=== PATIENT | female | born 1985 | race Caucasian/White ===

== ENCOUNTER 2019-09-18 05:26 | Emergency (ER) | payer OTHER, SELFPAY ==
[2019-09-18 05:30] VITALS: BP 137/81; PULSE 84; RESP 20; TEMP 37.1; O2SAT 97
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
== END 2019-09-18 05:50 | disposition left against medical advice (07) ==
PROVIDERS: Emergency Provider Family Medicine
DX: S71.111A Laceration without foreign body, right thigh, initial encounter (principal); W26.0XXA Contact with knife, initial encounter
CPT/HCPCS: 99281; 99282

== ENCOUNTER 2021-08-17 12:28 | Emergency (ER) | payer OTHER, SELFPAY ==
[2021-08-17 12:38] VITALS: BP 123/68; PULSE 84; RESP 16; TEMP 36.6; O2SAT 100
--- NOTE | 2021-08-17 14:07 | PC.NURSE ---
pt ambulatory to intake desk and states she is going to another facility. pt ambulatory out of waiting area.
== END 2021-08-17 14:21 | disposition left against medical advice (07) ==
LOC: ANHED 14:18
DX: R20.0 Anesthesia of skin (principal)
CPT/HCPCS: 99199

== ENCOUNTER 2021-12-25 06:29 | Inpatient (IN) | payer OTHER, SELFPAY ==
[2021-12-25] VITALS (104 sets, daily range): BP systolic 74–127; BP diastolic 36–72; PULSE 39–104; RESP 12–20; TEMP 36.2–36.7; O2SAT 81–100; BMI 34.9
--- NOTE | 2021-12-25 06:30 | LDADM ---
This patient, Olena Boone, was admitted to Labor/Delivery/Recovery 107 on 12/25/21 at 06:29. Plans for labor, pain management and were discussed with patient. Patient/family oriented to hospital policies and general routines including ID bracelet, bed and alarms, visiting hours, pain management, procedures, bathroom and other care routines, personal items, smoking policy, room service/diet and guest tray routines, infant security routines, and visiting hours. Patient/Family are encouraged to report perceived risks to care and to ask questions if they do not understand what they are told or what they should do. See OBIX for further documentation.
--- OUTSIDE RECORDS SUMMARY | 2021-12-25 06:40 | XMS_ITS | Encounter Summary ---
:1985 Author Reason for Visit NST [id number] EDC 01/15/2022 LMP1 Assessment and Plan 1. Cholestasis of ? non-stress test Discussion Note: None recorded.Patient educational handouts: No information available. Plan of Care Reminders Provider Appointments Nst 12/28/2021 10:00AM Nst, , EQUI P ? Nst 12/31/2021 10:00AM Nst, , EQUI P ? Ob Routine 12/31/2021 10:30AM Massiel E Kathi ngle, CNM ? Nst 01/04/2022 10:00AM Nst, , EQUI P ? Ob Routine 01/07/2022 10:30AM Massiel E Kathi ngle, CNM ? Nst 01/07/2022 10:00AM Nst, , EQUI P ? Nst 01/11/2022 10:00AM Nst, , EQUI P ? Ob Routine 01/14/2022 10:30AM Massiel E Kathi ngle, CNM ? Nst 01/14/2022 10:00AM Nst, , EQUI P ? Nst 01/18/2022 10:00AM Nst, , EQUI P Lab None recorded. ? ? Referral None recorded. ? ? Procedures None recorded. ? ? Surgeries None recorded. ? ? Imaging Non-stress Test 12/07/2021 [place] Medications Name Start Date ? ? levothyroxine 125 mcg tablet ? Take 1 tablet twice a day by oral route. metoclopramide 10 mg tablet ? Take 1 tablet every 6 hours by oral route as needed. olanzapine 10 mg tablet ? TAKE 1 TABLET BY MOUTH NIGHTLY AT BEDTIME ALONG WITH 20MG DOSE prednisone 2.5 mg tablet ? Take 1 tablet every day by oral route. sertraline 100 mg tablet ? ursodiol 300 mg capsule ? Take 1 capsule twice a day by oral route. ursodiol 500 mg tablet ? TAKE 1 TABLET TWICE A DAY BY ORAL ROUTE verapamil ER (SR) 180 mg tablet,extended release ? Take 0.5 tablet(s) every day by oral route. Medications Administered None recorded. Vitals
--- OUTSIDE RECORDS SUMMARY | 2021-12-25 06:40 | XMS_ITS ---
:1985 Author Care Team Providers Name Role Phone Massiel Junior Primary Care Provider Unavailable Allergies Code Code System Name Reaction Severity Status Onset 08588 RxNorm Ketorolac ? ? Active ? Penicillins Hives ? Active ? Notes: KETOROLAC TROMETHAMINE (Active) Comment: Location: [facility] Causative Agent: Toradol; Medications Name Status Start Date Stop Date ? ? Anusol-HC 2.5 % topical cream with perineal applicator Completed 06/27/2018 10/04/2018 apply by topical route 2- 4 times every day a thin layer to the affected area(s) azithromycin 250 mg tablet Completed 06/27/201807/01 take 2 tablet by oral route every day f or 1 day then 1 tablet (250 mg) by oral route once daily for 4 days ceftriaxone 250 mg solution for injection Completed 201710/04/2018 inject (250MG) by intramuscular route once Compazine 5 mg tablet Completed 06/19/2018 10/04/2018 take 1 tablet by oral route every 6 hours as needed for nausea and vomiting Depo-Provera 150 mg/mL intramuscular suspension Completed 10/04/2018 06/16/2021 inject 1 milliliter by intramuscular route every 3 months Flagyl 500 mg tablet Completed 04/09/2018 09/05/2018 take 1 tablet by oral route every 12 hours hydroxyzine HCl 25 mg tablet Completed ? TAKE 1 TABLET BY MOUTH TWO TIMES A DAY NEEDED hydroxyzine HCl 50 mg tablet Completed ? TAKE 1 TABLET BY MOUTH TWO TIMES A DAY NEEDED hydroxyzine pamoate 25 mg capsule Completed ? 08/04/2021 TAKE 1 CAPSULE BY MOUTH TWO TIMES A DAY NEEDED hydroxyzine pamoate 50 mg capsule Completed ? 08/04/2021 TAKE 1 CAPSULE BY MOUTH TWO TIMES A DAY NEEDED
--- OUTSIDE RECORDS SUMMARY | 2021-12-25 06:40 | XMS_ITS | Encounter Summary ---
:1985 Author Reason for Visit OB visit OB [id number] EDC 01/15/2022 LMP 03/10/2021 Assessment and Plan Assessment Note Patient is __34_weeks . Discuss ed plan. 1. Cholestasis of ? bile acids, total, serum ? CBC w/ auto diff ? TSH, serum or plasma 2. Routine care Discussion Note: None recorded.Patient educational handouts: No information available. Plan of Care Reminders Provider Appointments Nst 12/28/2021 Nst, , EQUIP 10:00AM ? Nst 12/31/2021 Nst, , EQUIP 10:00AM ? Ob Routine 12/31/2021 Massiel Junior , CNM 10:30AM ? Nst 01/04/2022 Nst, , EQUIP 10:00AM ? Ob Routine 01/07/2022 Massiel Junior , CNM 10:30AM ? Nst 01/07/2022 Nst, , EQUIP 10:00AM ? Nst 01/11/2022 Nst, , EQUIP 10:00AM ? Ob Routine 01/14/2022 Massiel Junior , CNM 10:30AM ? Nst 01/14/2022 Nst, , EQUIP 10:00AM ? Nst 01/18/2022 Nst, , EQUIP 10:00AM Lab Bile Acids, Total, Serum 12/10/2021 [facility] (Lab) ? CBC W/ Auto Diff 12/10/2021 [facility] (Lab) ? TSH, Serum or Plasma 12/10/2021 [facility] (Lab)
--- OUTSIDE RECORDS SUMMARY | 2021-12-25 06:40 | XMS_ITS | Encounter Summary ---
:1985 Author Reason for Visit None recorded. Assessment and Plan 1. Cholestasis of ? [...] None recorded. ? ? Imaging Non-stress Test 12/24/2021 [place] Medications Name Start Date ? ? levothyroxine [...] oral route. Medications Administered None recorded. Vitals None recorded. Re
--- OUTSIDE RECORDS SUMMARY | 2021-12-25 06:40 | XMS_ITS | Encounter Summary ---
[...] None recorded. ? ? Imaging Non-stress Test 12/21/2021 [place] Medications Name Start Date ? ? levothyroxine [...]
--- OUTSIDE RECORDS SUMMARY | 2021-12-25 06:40 | XMS_ITS | Encounter Summary ---
:1985 Author Reason for Visit None recorded. Assessment and Plan 1. Cholestasis of ? US, obstetric, follow-up Discussion Note: None recorded.Patient educational handouts: No [...] ? Surgeries None recorded. ? ? Imaging US, Obstetric, Follow-up 12/24/2021 [facility] Medications Name Start Date ? ? levothyroxine 125 mcg tablet ? Take 1 tablet twice a day by oral route. metoclopramide 10 mg tablet ? Take 1 tablet every 6 hours by oral route as needed. olanzapine 10 mg tablet ? TAKE 1 TABLET BY MOUTH NIGHTLY AT BEDTIME ALONG WITH 20MG DO
--- OUTSIDE RECORDS SUMMARY | 2021-12-25 06:40 | XMS_ITS | Encounter Summary ---
[...] None recorded. ? ? Imaging Non-stress Test 12/10/2021 [place] Medications Name Start Date ? ? levothyroxine [...] Medications Administered None recorded. Vitals None recorded. Res
--- OUTSIDE RECORDS SUMMARY | 2021-12-25 06:40 | XMS_ITS | Encounter Summary ---
:1985 Author Reason for Visit nst [id number] EDC 01/15/2022 Assessment and Plan 1. Gestational diabetes mellitus ? non-stress test Discussion Note: None recorded.Patient [...] None recorded. ? ? Imaging Non-stress Test 12/14/2021 [place] Medications Name Start Date ? ? levothyroxine [...]
--- OUTSIDE RECORDS SUMMARY | 2021-12-25 06:40 | XMS_ITS | Encounter Summary ---
:1985 Author Reason for Visit OB visit OB [id number] EDC 01/15/2022 LMP 03/10/2021 Assessment and Plan Assessment Note Patient is __33_weeks . Discuss ed plan. 1. Routine care Discussion Note: None recorded.Patient educational [...] ? Surgeries None recorded. ? ? Imaging None recorded. ? ? Medications Name Start Date ? ? levothyroxine [...] ROUTE verapamil ER (SR) 180 mg tablet,extended relea
--- OUTSIDE RECORDS SUMMARY | 2021-12-25 06:40 | XMS_ITS | Encounter Summary ---
[...] None recorded. ? ? Imaging Non-stress Test 12/03/2021 [place] Medications Name Start Date ? ? levothyroxine [...]
--- OUTSIDE RECORDS SUMMARY | 2021-12-25 06:40 | XMS_ITS | Encounter Summary ---
:1985 Author Reason for Visit None recorded. Assessment and Plan 1. condition affecting obstetrica l care of mother ? US, obstetric, biophysical profile Discussion Note: None recorded.Patient educational handouts: No information available. Plan of Care Reminders Provider Appointments Nst 12/28/2021 Nst, , EQUIP 10:00AM ? Nst 12/31/2021 Nst, , EQUIP 10:00AM ? Ob Routine 12/31/2021 Massiel Lotte , CNM 10:30AM ? Nst 01/04/2022 Nst, , EQUIP 10:00AM ? Ob Routine 01/07/2022 Massiel Star JacksonVernon , CNM 10:30AM ? Nst 01/07/2022 Nst, , EQUIP 10:00AM ? Nst 01/11/2022 Nst, , EQUIP 10:00AM ? Ob Routine 01/14/2022 Massiel Star JacksonVernon , CNM 10:30AM ? Nst 01/14/2022 Nst, , EQUIP 10:00AM ? Nst 01/18/2022 Nst, , EQUIP 10:00AM Lab None recorded. ? ? Referral None recorded. ? ? Procedures None recorded. ? ? Surgeries None recorded. ? ? Imaging US, Obstetric, Biophysical 12/10/2021 [place] Medications Name Start Date ? ? levothyroxine 125 mcg tablet ? Take 1 tablet twice a day by oral route. metoclopramide 10 mg tablet ? Take 1 tablet every 6 hours by oral route as needed. olanzapine 10 mg tablet ? TAKE 1 TABLET BY
--- OUTSIDE RECORDS SUMMARY | 2021-12-25 06:40 | XMS_ITS | Encounter Summary ---
:1985 Author Reason for Visit OB visit OB [id number] EDC 01/15/2022 LMP 03/10/2021 Assessment and Plan Assessment Note Patient is __36_weeks . Discuss ed plan. 1. Routine care [...] ROUTE verapamil ER (SR) 180 mg tablet,extended rele
--- OUTSIDE RECORDS SUMMARY | 2021-12-25 06:41 | XMS_ITS | Encounter Summary ---
[...] None recorded. ? ? Imaging Non-stress Test 11/30/2021 [place] Medications Name Start Date ? ? levothyroxine [...]
--- OUTSIDE RECORDS SUMMARY | 2021-12-25 06:41 | XMS_ITS | Encounter Summary ---
[...] None recorded. ? ? Imaging Non-stress Test 11/19/2021 [place] Medications Name Start Date ? ? levothyroxine [...]
--- OUTSIDE RECORDS SUMMARY | 2021-12-25 06:41 | XMS_ITS | Encounter Summary ---
:1985 Author Reason for Visit OB problem pt here c/o fatigue and all over itching Assessment and Plan 1. Cholestasis of ? prednisone 2.5 mg tablet Discussion Note: None recorded.Patient educational handouts: No [...] 0.5 tablet(s) every day by oral route. Me
--- OUTSIDE RECORDS SUMMARY | 2021-12-25 06:41 | XMS_ITS | Encounter Summary ---
:1985 Author Reason for Visit None recorded. Assessment and Plan 1. History of premature delivery ? US, obstetric, follow-up Discussion Note: None [...] recorded. ? ? Imaging US, Obstetric, Follow-up 09/28/2021 [facility] Medications Name Start Date ? ? levothyroxine 125 mcg tablet ? Take 1 tablet twice a day by oral route. metoclopramide 10 mg tablet ? Take 1 tablet every 6 hours by oral route as needed. olanzapine 10 mg tablet ? TAKE 1 TABLET BY MOUTH NIGHTLY AT BEDTIME ALONG WITH 20M
--- OUTSIDE RECORDS SUMMARY | 2021-12-25 06:41 | XMS_ITS | Encounter Summary ---
[...] None recorded. ? ? Imaging Non-stress Test 11/17/2021 [place] Medications Name Start Date ? ? levothyroxine [...]
--- OUTSIDE RECORDS SUMMARY | 2021-12-25 06:41 | XMS_ITS | Encounter Summary ---
[...] None recorded. ? ? Imaging Non-stress Test 11/12/2021 [place] Medications Name Start Date ? ? levothyroxine [...]
--- OUTSIDE RECORDS SUMMARY | 2021-12-25 06:41 | XMS_ITS | Encounter Summary ---
[...] None recorded. ? ? Imaging Non-stress Test 11/26/2021 [place] Medications Name Start Date ? ? levothyroxine [...]
--- OUTSIDE RECORDS SUMMARY | 2021-12-25 06:41 | XMS_ITS | Encounter Summary ---
:1985 Author Reason for Visit OB visit OB [id number] EDC 01/15/2022 LMP 03/10/2021 Assessment and Plan Assessment Note Patient is __32_weeks . Discuss ed plan. 1. Cholestasis of ? bile acids, total, serum ? TSH, serum or plasma ? T4, free, serum 2. Hypothyroidism 3. Routine care Discussion Note: None recorded.Patient educational [...] EQUIP 10:00AM Lab Bile Acids, Total, Serum 11/26/2021 [facility] (Lab) ? TSH, Serum or Plasma 11/26/2021 [facility] (Lab) ? T4, Free, Serum 11/26/2021 [facility]
--- OUTSIDE RECORDS SUMMARY | 2021-12-25 06:41 | XMS_ITS | Encounter Summary ---
:1985 Author Reason for Visit OB visit ob [id number] EDC 01/15/2022 LMP 03/10/2021 Assessment and Plan 1. Routine care ? TSH, serum or plasma 2. Itching of skin ? bile acids, total, serum ? CMP, serum or plasma Discussion Note: None recorded.Patient educational handouts: No [...] Nst 01/18/2022 Nst, , EQUIP 10:00AM Lab TSH, Serum or Plasma 10/04/2021 [facility] (Lab) ? Bile Acids, Total, Serum 10/04/2021 [facility] (Lab) ? CMP, Serum or Plasma 10/04/2021 [facility] (Lab) Referral None recorded. ? ? Procedures None recorded. ? ? Surgeries
--- OUTSIDE RECORDS SUMMARY | 2021-12-25 06:41 | XMS_ITS | Encounter Summary ---
:1985 Author Reason for Visit OB visit OB [id number] EDC 01/15/2022 LMP 03/10/2021 Assessment and Plan Assessment Note Patient is __31_weeks . Discuss ed plan. 1. Routine care [...]
--- OUTSIDE RECORDS SUMMARY | 2021-12-25 06:41 | XMS_ITS | Encounter Summary ---
:1985 Author Reason for Visit OB visit OB [id number] EDC 01/15/2022 LMP 03/10/2021 Assessment and Plan Assessment Note Patient is 29___weeks . Discuss ed plan. 1. Routine care [...]
--- OUTSIDE RECORDS SUMMARY | 2021-12-25 06:41 | XMS_ITS | Encounter Summary ---
[...] None recorded. ? ? Imaging Non-stress Test 11/10/2021 [place] Medications Name Start Date ? ? levothyroxine [...]
--- OUTSIDE RECORDS SUMMARY | 2021-12-25 06:41 | XMS_ITS | Encounter Summary ---
[...] recorded. ? ? Imaging US, Obstetric, Follow-up 11/26/2021 [facility] Medications Name Start Date ? ? levothyroxine 125 mcg tablet ? Take 1 tablet twice a day by oral route. metoclopramide 10 mg tablet ? Take 1 tablet every 6 hours by oral route as needed. olanzapine 10 mg tablet ? TAKE 1 TABLET BY MOUTH NIGHTLY AT BEDTIME ALONG WITH 20MG DOS
[2021-12-25 07:21] LABS: Basophils Percent Auto 0.3 % (0.2-1.2); Eosinophils Absolute Auto 0.2 K/mm3 (0-0.3); Eosinophils Percent Auto 2.4 % (0-4.4); Hematocrit 31.7 % (37.0-47.0); Hemoglobin 10.4 g/dL (12.0-15.0); Immature Granulocyte Absolute 0.11 K/mm3 (0.00-0.031); Immature Granulocyte Percent A 1.1 % (0-0.5); Lymphocytes Percent Auto 18.2 % (18.3-44.2); Mean Corpuscular HGB Conc 32.8 g/dl (32-36); Mean Corpuscular Hemoglobin 31.3 pg (26-34); Mean Corpuscular Volume 95.5 fl (80-100); Mean Platelet Volume 11.3 fl (7.4-10.4); Monocytes Absolute Auto 0.6 K/mm3 (0.1-0.6); Monocytes Percent Auto 6.4 % (2.6-8.5); Neutrophils Absolute Auto 7.1 K/mm3 (1.3-6.7); Neutrophils Percent Auto 71.6 % (45.5-73.1); Platelet Count Result 228 k/mm3 (150-375); Red Blood Count 3.32 M/mm3 (4.2-5.4); Red Cell Distribution Width 14.5 % (11.5-14.5); White Blood Count 9.9 K/mm3 (4.5-10.0)
[2021-12-25] MEDS: LACTATED RINGERS 1,000 ML 125 ML IV CONT ×2 (07:33→17:24)
[2021-12-25] MEDS: ceFAZolin 2 GM/D5W 50 ML 2 GM/50 ML BAG IVPB (07:33)
[2021-12-25] MEDS: OXYTOCIN 30 UNITS/NS 500 ML 30 UNITS/500 ML BAG IV CONT (07:37)
[2021-12-25 07:40] LABS: Amphetamine Screen Urine Negative (Negative); Barbiturate Screen Urine Negative (Negative); Benzodiazepines Screen Urine Negative (Negative); Cannabinoid Screen Urine Positive (Negative); Cocaine Screen Urine Negative (Negative); Methadone Screen Urine Negative (Negative); Opiate Screen Urine Negative (Negative); Phencyclidine Screen Urine Negative (Negative)
--- NOTE | 2021-12-25 08:37 | WPDOBADMIT ---
Obstetrics - Admit Note Admission Note: record reviewed. No pertinent additions to the history and/or any subsequent changes in the physical findings that are not consistent with the expected course of the were found. IOL, cholestasis, hypothyroidism, GBS positive, SVE 1.5/60/-2 AROM minimal amount of clear odorless fluid Additions to the history and/or subsequent changes in the physical findings follow. None.
[2021-12-25] MEDS: ACETAMINOPHEN 500 MG TABLET 1000 MG PO (09:05)
[2021-12-25] MEDS: ONDANSETRON INJ 4 MG/2 ML VIAL IV PUSH (12:36)
[2021-12-25] MEDS: fentaNYL CITRATE INJ (*CRX) 100 MCG/2 ML VIAL 50 MCG IV PUSH ×2 (12:37→13:10)
--- NOTE | 2021-12-25 20:08 | PM.IMHP ---
H&P: HPI History of Present Illness Date/Time: 12/25/21 20:08 Chief Complaint: Pt is a with hx of demise in 2003 and ectopic in 2006. pt was admitted today for induction for cholestasis at 37 weeks gestation. pt has a history of thyroid cancer, methamphetamine use. pt is in recovery and has tested negative during this . pt is tanvir regularly. RN unable to place FSE and CNM at be, US done and fetus in breech position. Fetus was confirmed vertex 12/25/21 with us in the office. GBS positive Review of Systems Review of Systems: All systems reviewed & are unremarkable except as noted in HPI and below PMFSH Past Medical History Medical History (Updated 12/25/21 @ 20:14 by Massiel Junior CNM) Anxiety Depression Surgical History Surgical History (Updated 09/18/19 @ 06:23 by Jason DejesusMD) H/O thyroidectomy H/O tubal ligation S/P tonsillectomy Family History Family History (Updated 12/25/21 @ 07:22 by Celine Barber RN) Other Unknown family medical history Social History Social History (Updated 09/18/19 @ 06:24 by Jason Dejesus, ) Smoking packs per day: 0.5 Smoking cigarettes per day: 10.0 Years smoked: 20 Smoking pack-years: 10.00 Smoking status: Current every day smoker Tobacco type: cigarettes Substance use: current Substance use type: marijuana Spiritual care concerns: No Meds Home Medications and Allergies Home Medications Medication Instructions Recorded Confirmed Type levothyroxine 125 mcg tablet 225 mcg PO DAILY 09/18/19 12/25/21 History vit no.95-ferrous 1 tablet PO DAILY 09/18/19 12/25/21 History fumarate 28 mg-folic acid 800 mcg tablet () prednisone 2.5 mg tablet 2.5 mg PO DAILY 12/25/21 12/25/21 History ursodiol 500 mg tablet 500 mg PO BID 12/25/21 12/25/21 History Allergies Allergy/AdvReac Type Severity Reaction Status Date / Time Penicillins Allergy Severe HIVES Verified 04/23/15 21:40 ketorolac Allergy Intermediate HIVES Verified 04/23/15 21:40 vancomycin Allergy Mild Itching Verified 09/05/18 14:24 Vital Signs Vital Signs - 24 hr 12/25/21 06:54 12/25/21 06:55 12/25/21 07:46 Temperature 36.6 C Pulse Rate 81 57 L Respiratory Rate 20 Blood Pressure 94/51 L 103/64 Oxygen Delivery 12/25/21 08:01 12/25/21 08:16 12/25/21 08:31 Temperature Pulse Rate 55 L 59 L 79 Respiratory Rate Blood Pressure 107/52 L 105/60 107/65 Oxygen Delivery 12/25/21 08:35 12/25/21 08:46 12/25/21 09:01 Temperature 36.5 C Pulse Rate 57 L 69 Respiratory Rate 18 Blood Pressure 108/62 127/72 Oxygen Delivery 12/25/21 09:16 12/25/21 09:25 12/25/21 09:31 Temperature Pulse Rate 55 L 58 L 61 Respiratory Rate Blood Pressure 89/65 L 88/46 L 86/44 L Oxygen Delivery 12/25/21 10:01 12/25/21 10:30 12/25/21 10:31 Temperature 36.7 C Pulse Rate 57 L 53 L Respiratory Rate 18 Blood Pressure 90/46 L 112/67 Oxygen Delivery 12/25/21 11:01 12/25/21 11:14 12/25/21 11:31 Temperature Pulse Rate 54 L 54 L 48 L Respiratory Rate Blood Pressure 95/45 L 113/68 106/58 L Oxygen Delivery 12/25/21 12:01 12/25/21 12:10 12/25/21 12:34 Temperature 36.6 C Pulse Rate 57 L 56 L Respiratory Rate 18 Blood Pressure 124/57 L 108/50 L Oxygen Delivery 12/25/21 13:01 12/25/21 13:31 12/25/21 13:47 Temperature 36.6 C Pulse Rate 51 L 49 L Respiratory Rate 20 Blood Pressure 96/55 L 85/45 L Oxygen Delivery 12/25/21 14:02 12/25/21 14:09 12/25/21 14:31 Temperature Pulse Rate 49 L 46 L 49 L Respiratory Rate Blood Pressure 74/57 L 98/65 L 102/65 Oxygen Delivery 12/25/21 14:47 12/25/21 15:01 12/25/21 15:31 Temperature Pulse Rate 49 L 50 L 47 L Respiratory Rate Blood Pressure 105/54 L 96/52 L 109/51 L Oxygen Delivery 12/25/21 16:01 12/25/21 16:03 12/25/21 16:31 Temperature 36.6 C Pulse Rate 60 55 L
--- NOTE | 2021-12-25 20:14 | PM.IMHP ---
H&P: HPI History of Present Illness Date/Time: 12/25/21 20:14 Chief Complaint: pt comfortable and resting us done, breech presentation PMFSH Past Medical History Medical History (Updated 12/25/21 @ 20:15 by Massiel Junior CNM) Anxiety Depression Surgical History Surgical History (Updated 09/18/19 @ 06:23 by Jason Dejesus, ) H/O thyroidectomy H/O tubal ligation S/P tonsillectomy Family History Family History (Updated 12/25/21 @ 07:22 by Celine Barber RN) Other Unknown family medical history Social History Social History (Updated 09/18/19 @ 06:24 by Jason Dejesus, ) Smoking packs per day: 0.5 Smoking cigarettes per day: 10.0 Years smoked: 20 Smoking pack-years: 10.00 Smoking status: Current every day smoker Tobacco type: cigarettes Substance use: current Substance use type: marijuana Spiritual care concerns: No Meds Home Medications and Allergies Home Medications Medication Instructions Recorded Confirmed Type levothyroxine 125 mcg tablet 225 mcg PO DAILY 09/18/19 12/25/21 History vit no.95-ferrous 1 tablet PO DAILY 09/18/19 12/25/21 History fumarate 28 mg-folic acid 800 mcg tablet () prednisone 2.5 mg tablet 2.5 mg PO DAILY 12/25/21 12/25/21 History ursodiol 500 mg tablet 500 mg PO BID 12/25/21 12/25/21 History Allergies Allergy/AdvReac Type Severity Reaction Status Date / Time Penicillins Allergy Severe HIVES Verified 04/23/15 21:40 ketorolac Allergy Intermediate HIVES Verified 04/23/15 21:40 vancomycin Allergy Mild Itching Verified 09/05/18 14:24 Vital Signs Vital Signs - 24 hr 12/25/21 06:54 12/25/21 06:55 12/25/21 07:46 Temperature 36.6 C Pulse Rate 81 57 L Respiratory Rate 20 Blood Pressure 94/51 L 103/64 Oxygen Delivery 12/25/21 08:01 12/25/21 08:16 12/25/21 08:31 Temperature Pulse Rate 55 L 59 L 79 Respiratory Rate Blood Pressure 107/52 L 105/60 107/65 Oxygen Delivery 12/25/21 08:35 12/25/21 08:46 08/06/22 09:01 Temperature 36.5 C Pulse Rate 57 L 69 Respiratory Rate 18 Blood Pressure 108/62 127/72 Oxygen Delivery 12/25/21 09:16 12/25/21 09:25 12/25/21 09:31 Temperature Pulse Rate 55 L 58 L 61 Respiratory Rate Blood Pressure 89/65 L 88/46 L 86/44 L Oxygen Delivery 12/25/21 10:01 12/25/21 10:30 12/25/21 10:31 Temperature 36.7 C Pulse Rate 57 L 53 L Respiratory Rate 18 Blood Pressure 90/46 L 112/67 Oxygen Delivery 12/25/21 11:01 12/25/21 11:14 12/25/21 11:31 Temperature Pulse Rate 54 L 54 L 48 L Respiratory Rate Blood Pressure 95/45 L 113/68 106/58 L Oxygen Delivery 12/25/21 12:01 12/25/21 12:10 12/25/21 12:34 Temperature 36.6 C Pulse Rate 57 L 56 L Respiratory Rate 18 Blood Pressure 124/57 L 108/50 L Oxygen Delivery 12/25/21 13:01 12/25/21 13:31 12/25/21 13:47 Temperature 36.6 C Pulse Rate 51 L 49 L Respiratory Rate 20 Blood Pressure 96/55 L 85/45 L Oxygen Delivery 12/25/21 14:02 12/25/21 14:09 12/25/21 14:31 Temperature Pulse Rate 49 L 46 L 49 L Respiratory Rate Blood Pressure 74/57 L 98/65 L 102/65 Oxygen Delivery 12/25/21 14:47 12/25/21 15:01 12/25/21 15:31 Temperature Pulse Rate 49 L 50 L 47 L Respiratory Rate Blood Pressure 105/54 L 96/52 L 109/51 L Oxygen Delivery 12/25/21 16:01 12/25/21 16:03 12/25/21 16:31 Temperature 36.6 C Pulse Rate 60 55 L Respiratory Rate 18 Blood Pressure 97/53 L 81/55 L Oxygen Delivery 12/25/21 16:48 12/25/21 17:01 12/25/21 17:24 Temperature 36.4 C Pulse Rate 55 L 46 L Respiratory Rate 20 Blood Pressure 98/52 L 104/60 Oxygen Delivery 12/25/21 17:31 12/25/21 17:32 12/25/21 18:01 Temperature Pulse Rate 55 L 52 L 50 L Respiratory Rate Blood Pressure 112/61 113/58 L 122/69 Oxygen Delivery 12/25/21 18:31 12/25/21 18:52 12/25/21 19:01 Temperature 36.3 C L Pulse R
--- NOTE | 2021-12-25 20:19 | WPDANESEPP ---
Anes - Eval Pre Procedure Procedure: Operation Date: 12/25/21 20:30 Proposed Procedures p Section - Angely Jefferson MD Date/Time: 12/25/21 20:19 Preop Diagnosis: breech presentation Pre Op Diagnosis: Induction of Labor Patient Data Age: 36 Gender: F Height: 1.8 m Weight: 113.6 kg Last Vital Signs Temp 36.3 C L 12/25/21 18:52 Pulse 49 L 12/25/21 20:01 Resp 20 12/25/21 17:24 BP 118/62 12/25/21 20:01 O2 Del Method Room Air 12/25/21 07:54 Allergies Allergy/AdvReac Type Severity Reaction Status Date / Time Penicillins Allergy Severe HIVES Verified 04/23/15 21:40 ketorolac Allergy Intermediate HIVES Verified 04/23/15 21:40 vancomycin Allergy Mild Itching Verified 09/05/18 14:24 Home Medications Medication Instructions Recorded Confirmed Type levothyroxine 125 mcg tablet 225 mcg PO DAILY 09/18/19 12/25/21 History vit no.95-ferrous 1 tablet PO DAILY 09/18/19 12/25/21 History fumarate 28 mg-folic acid 800 mcg tablet () prednisone 2.5 mg tablet 2.5 mg PO DAILY 12/25/21 12/25/21 History ursodiol 500 mg tablet 500 mg PO BID 12/25/21 12/25/21 History Laboratory Tests 12/25/21 12/25/21 12/25/21 07:04 07:04 07:04 WBC 9.9 K/mm3 K/mm3 (4.5-10.0) RBC 3.32 M/mm3 L M/mm3 (4.2-5.4) Hgb 10.4 g/dL L g/dL (12.0-15.0) Hct 31.7 % L % (37.0-47.0) MCV 95.5 fl fl (80-100) MCH 31.3 pg pg (26-34) MCHC 32.8 g/dl g/dl (32-36) RDW 14.5 % % (11.5-14.5) Plt Count 228 k/mm3 k/mm3 (150-375) MPV 11.3 fl H fl (7.4-10.4) Immature Gran % (Auto) 1.1 % H % (0-0.5) Neut % (Auto) 71.6 % % (45.5-73.1) Lymph % (Auto) 18.2 % L % (18.3-44.2) [place] % (Auto) 6.4 % % (2.6-8.5) Eos % (Auto) 2.4 % % (0-4.4) Baso % (Auto) 0.3 % % (0.2-1.2) Lymph # (Auto) 1.80 K/mm3 K/mm3 (0.9-3.2) [place] # (Auto) 0.6 K/mm3 K/mm3 (0.1-0.6) Eos # (Auto) 0.2 K/mm3 K/mm3 (0-0.3) Baso # (Auto) 0.0 K/mm3 K/mm3 (0.0-0.1) Abs Immat Gran (auto) 0.11 K/mm3 H K/mm3 (0.00-0.031) Absolute Neuts (auto) 7.1 K/mm3 H K/mm3 (1.3-6.7) Absolute Nucleated RBC 0.0 K/mm3 K/mm3 (0.0-0.012) Nucleated RBC % 0.0 % % (0.0-0.2) Urine Opiates Screen Urine Methadone Screen Ur Barbiturates Screen Ur Phencyclidine Scrn Ur Amphetamine Screen U Benzodiazepines Scrn Urine Cocaine Screen U Cannabinoids Screen RPR Pending Blood Type A Negative Antibody Screen Positive Antibody Identification Passive Due to RH Imm Glob Antigen Identification Cancelled JOSH, IgG Interpret Not Performed JOSH, Poly Interpret Neg JOSH, Complement Interp Not Performed 12/25/21 07:04 WBC RBC Hgb Hct MCV MCH MCHC RDW Plt Count MPV Immature Gran % (Auto) Neut % (Auto) Lymph % (Auto) [place] % (Auto) Eos % (Auto) Baso % (Auto) Lymph # (Auto) [place] # (Auto) Eos # (Auto) Baso # (Auto) Abs Immat Gran (auto) Absolute Neuts (auto) Absolute Nucleated RBC Nucleated RBC % Urine Opiates Screen Negative (Negative) Urine Methadone Screen Negative (Negative) Ur Barbiturates Screen Negative (Negative) Ur Phencyclidine Scrn Negative (Negative) Ur Amphetamine Screen Negative (Negative) U Benzodiazepines Scrn Negative (Negative) Urine Cocaine Screen Negative (Negative) U Cannabinoids Screen Positive A (Negative) RPR Blood Type Antibody Screen Antibody Identification Antigen Identificatio
--- NOTE | 2021-12-25 22:05 | W.PM.PROC2 ---
Procedure Note - Detailed Date of Procedure 12/25/21 Pre-op Diagnosis Term , cholestasis, malposition of the fetus, intrapartum hemorrhage Post-op Diagnosis Same ( transverse presentation of the fetus, placental abruption) Procedure Performed Low-transverse section Surgeon Angely Jefferson MD Anesthesia Spinal Indications intrapartum hemorrhage, malposition of the fetus Findings Normal gestational maternal anatomy, large clots in the lower uterine segment, transverse position the the with the back down. Description of Procedure The patient was taken the operating room. She was prepped and draped in dorsal supine position with a leftward tilt. This was done after spinal anesthetic was applied. A low-transverse skin incision was made and carried down till of the fascia with the knife. The fascial incision was made with the knife. The fascial incision was extended laterally with Reaves scissors. The fascia was tented upward superiorly and inferiorly the rectus muscles were dissected off bluntly. The rectus muscles were the midline. The preperitoneal fat and peritoneum were dissected open bluntly at the superior aspect of the rectus muscles. The peritoneal incision was extended superior and inferior with good position of bladder. The uterine incision was made with a scalpel down to the level of the amniotic cavity. The amniotic cavity was entered bluntly. The uterine excision incision was extended laterally with blunt traction. The incision was found to be low the uterus that had not thinned in the lower uterine segment. The infant in the transverse position was elevated above the ureter the incision, uterine incision was extended in the middle of the transverse incision upward at the midline about 8 cm. This allowed enough space in the lower uterine segment to deliver the baby. Manually the infant was rotated to the tom breech position and the presenting part was drawn and the open incision. A legs were delivered after being reduced. Torso was delivered and arms reduced. Head was then delivered. The cord was clamped and cut and the was handed off to waiting pediatric staff. Cord bloods were obtained. The placenta was removed manually. The uterus was exteriorized. The uterus was cleared of all clots, debris and membranes. The uterus was closed in 0 Vicryl running lock fashion. An imbricating over a was placed along the incision line as well. The uterus was returned to the abdomen. The gutters were cleared of all clots and debris. The fascia was closed with 0 Vicryl running fashion. The subcutaneous tissue was irrigated pinpoint bleeders were cauterized. The skin was closed with subcuticular absorbable ferny. The skin incision line was covered with glue. The patient tolerated the procedure well. She has taken recovery room in stable condition. Sponge lap and needle counts were correct x2. Estimated Blood Loss 1,000 Pathology Yes Complications No immediate complications Condition Stable Disposition PACU
[2021-12-26] VITALS: BP 98/50; PULSE 43; RESP 16; TEMP 36.3
[2021-12-26] MEDS: HYDROcodone/acetaminophen (*CRX) 5-325 MG TABLET 1 TAB PO (00:02)
[2021-12-26] MEDS: DEXTROSE 5%/0.45% SOD CHL 1,000 ML 125 ML IV CONT (01:30)
[2021-12-26] MEDS: HYDROcodone/acetaminophen (*CRX) 10-325 MG TABLET 1 TAB PO ×4 (03:30→18:43)
[2021-12-26] MEDS: IBUPROFEN 600 MG TABLET PO ×3 (03:31→18:42)
[2021-12-26 04:21] LABS: Basophils Percent Auto 0.3 % (0.2-1.2); Eosinophils Absolute Auto 0.2 K/mm3 (0-0.3); Eosinophils Percent Auto 1.4 % (0-4.4); Hematocrit 28.5 % (37.0-47.0); Hemoglobin 9.4 g/dL (12.0-15.0); Immature Granulocyte Absolute 0.08 K/mm3 (0.00-0.031); Immature Granulocyte Percent A 0.6 % (0-0.5); Lymphocytes Absolute Auto 1.84 K/mm3 (0.9-3.2); Lymphocytes Percent Auto 13.6 % (18.3-44.2); Mean Corpuscular Hemoglobin 31.2 pg (26-34); Mean Corpuscular Volume 94.7 fl (80-100); Mean Platelet Volume 11.6 fl (7.4-10.4); Monocytes Absolute Auto 0.6 K/mm3 (0.1-0.6); Monocytes Percent Auto 4.6 % (2.6-8.5); Neutrophils Absolute Auto 10.8 K/mm3 (1.3-6.7); Neutrophils Percent Auto 79.5 % (45.5-73.1); Platelet Count Result 200 k/mm3 (150-375); Red Blood Count 3.01 M/mm3 (4.2-5.4); Red Cell Distribution Width 14.6 % (11.5-14.5); White Blood Count 13.6 K/mm3 (4.5-10.0)
[2021-12-26 08:00] VITALS: PULSE 56; RESP 18; O2SAT 100
[2021-12-26 09:05] VITALS: BP 99/52; PULSE 56; RESP 18; TEMP 37.3; O2SAT 100
--- NOTE | 2021-12-26 09:12 | P.PNOB_ITS ---
OB - PN: Subj Subjective Date/time seen: 12/26/21 09:12 s/p primary delivery day 1 OB - PN: Obj Data Labs CBC & Chem 7: 12/26/21 03:34 Labs: Laboratory Results - last 24 hr 12/25/21 12/26/21 07:04 03:34 WBC 13.6 H RBC 3.01 L Hgb 9.4 L Hct 28.5 L MCV 94.7 MCH 31.2 MCHC 33.0 RDW 14.6 H Plt Count 200 MPV 11.6 H Immature Gran % (Auto) 0.6 H Neut % (Auto) 79.5 H Lymph % (Auto) 13.6 L [place] % (Auto) 4.6 Eos % (Auto) 1.4 Baso % (Auto) 0.3 Lymph # (Auto) 1.84 [place] # (Auto) 0.6 Eos # (Auto) 0.2 Baso # (Auto) 0.0 Abs Immat Gran (auto) 0.08 H Absolute Neuts (auto) 10.8 H Absolute Nucleated RBC 0.0 Nucleated RBC % 0.0 Antibody Identification Passive Due to RH Imm Glob Antigen Identification Cancelled JOSH, IgG Interpret Not Performed JOSH, Poly Interpret Neg JOSH, Complement Interp Not Performed OB - PN A/P Plan day: 1 Plan: routine care Time Spent With Patient Time: Total time spent is greater than 50% in coordination of care (as documented) at patient's floor/unit and/or counseling patient: Review of Systems Review of Systems: All systems reviewed & are unremarkable except as noted in HPI and below Exam Narrative: incision cdi Const: General: cooperative, healthy appearing and comfortable
[2021-12-26] MEDS: LEVOTHYROXINE SODIUM 75 MCG TABLET 225 MCG PO (10:07)
[2021-12-26] MEDS: POLYSACCHARIDE IRON COMPLEX 150 MG CAPSULE PO ×2 (10:07→16:57)
[2021-12-26] MEDS: MULTIVIT/MIN/PREN/FOL AC/IRON TABLET 1 TAB PO (10:07)
[2021-12-26] MEDS: predniSONE 2.5 MG TABLET PO (10:07)
[2021-12-26] MEDS: DOCUSATE SODIUM 100 MG CAPSULE PO ×2 (10:08→16:57)
--- NOTE | 2021-12-26 10:41 | WPDANLDNPN2 ---
Anes-Prog Note L&D-Neuraxial Date/Time: 12/26/21 10:41 Patient feedback: Patient satisfied with post-operative pain management.
--- NOTE | 2021-12-26 10:42 | WPDANLDPN2 ---
Anes-Prog Note L&D Date/Time: 12/26/21 10:42 Neuro status: Neuro function grossly intact. Vital Signs: Last Vital Signs Temp 37.3 C 12/26/21 09:05 Pulse 56 L 12/26/21 09:05 Resp 18 12/26/21 09:05 BP 99/52 L 12/26/21 09:05 Pulse Ox 100 12/26/21 09:05 O2 Del Method Room Air 12/25/21 23:35 Pain score (VAS): 2 I/O: Intake & Output 12/25/21 12/26/21 12/26/21 23:59 07:59 15:59 Intake Total 150 500 Output Total 400 350 Balance -250 150 Patient feedback: Patient satisfied with anesthetic care.
[2021-12-26 12:30] VITALS: BP 94/54; PULSE 58; RESP 18; TEMP 37.1; O2SAT 99
[2021-12-26 16:30] VITALS: BP 102/47; PULSE 52; RESP 16; TEMP 35.8; O2SAT 100
[2021-12-26 20:50] VITALS: BP 105/42; PULSE 60; RESP 16; TEMP 35.9
[2021-12-27] MEDS: HYDROcodone/acetaminophen (*CRX) 10-325 MG TABLET 1 TAB PO ×4 (00:10→13:55)
[2021-12-27] MEDS: IBUPROFEN 600 MG TABLET PO ×3 (00:12→16:26)
--- NOTE | 2021-12-27 07:44 | PM.OBPNVD ---
OB - PN: Subj Subjective Date/time seen: 12/27/21 07:44 Patient comments: no complaints and pain well controlled baby status: doing well Narrative: would like dc home today OB - PN: Obj Data Labs CBC & Chem 7: 12/26/21 03:34 OB - PN A/P Plan day: 2 Plan: routine care and discharge home Time Spent With Patient Time: Total time spent is greater than 50% in coordination of care (as documented) at patient's floor/unit and/or counseling patient: Exam Narrative: NAD abdomen soft, appropriately tender, incision CDI Extremities nontender with 1+ edema
[2021-12-27 07:50] VITALS: BP 100/56; PULSE 72; RESP 18; TEMP 36.5; O2SAT 99
--- NOTE | 2021-12-27 07:57 | PM.OBDSVD ---
DS: Admitting Diagnosis Discharge Date 12/27/21 Admitting Diagnosis breech, term DS: Discharge Diagnosis Discharge Diagnosis (1) Breech presentation: Code(s): O32.1XX0 - Maternal care for breech presentation, not applicable or unspecified Status: Acute (2) delivery delivered: Code(s): O82 - Encounter for delivery without indication Status: Acute OB - DS: Summary Hospital Course Hospital Course: Olena was admitted for primary CS for breech. She proceeded to have an uncomplicated cs and recovery and was discharged home on POD 2. OB Procedures : Ultrasound OB Procedures Intrapartum: OB Procedures: : None Peripartum Data Delivery Method: Section Procedures: Procedures Operation Date: 12/25/21 20:30 Actual Procedure Side Surgeon p Section Angely Jefferson MD complications: none Time Spent with Patient Time attestation: Total time spent providing and/or coordinating discharge services: Exam Narrative: NAD abdomen soft, appropriately tender, incision CDI DS: Data Data Completed and Pending Pending studies at discharge: Pending at discharge 12/25/21 22:44 Surgical [PTH] Routine Discharge Plan Discharge Attending physician on discharge: Gayla Gray Discharging Clinician: Gayla Gray Anticipated Discharge Date/Time: 12/27/21 12:00 Patient Disposition: Home, Self-Care Activity: september shower Diet: as tolerated Patient Instructions: Antibiotic Form Stand Alone Forms: General Discharge Information Follow-up/Referrals: Angely Jefferson MD [Physician] - 1 Week Discharge Medications: New hydrocodone-acetaminophen 5-325 mg Tablet 1 tablet PO Q4-5H PRN (Reason: Moderate Pain (4-6)) Qty: 30 0RF docusate sodium 100 mg Capsule 100 mg PO BID Qty: 60 0RF ibuprofen 600 mg Tablet 600 mg PO Q6H PRN (Reason: Cramping) Qty: 60 0RF Continued levothyroxine 125 mcg tablet 225 mcg PO DAILY PNV cmb#95-ferrous fumarate-FA [] 28 mg iron- 800 mcg tablet 1 tablet PO DAILY prednisone 2.5 mg tablet 2.5 mg PO DAILY Discontinued ursodiol 500 mg tablet 500 mg PO BID Date of admission: 12/25/21 06:29 Primary Care Provider: UNKNOWN,DOCTOR Admitting Provider: Angely Jefferson Attending physician on admission: Angely Jefferson Condition: Stable
[2021-12-27] MEDS: DOCUSATE SODIUM 100 MG CAPSULE PO (09:06)
[2021-12-27] MEDS: MULTIVIT/MIN/PREN/FOL AC/IRON TABLET 1 TAB PO (09:07)
[2021-12-27] MEDS: BENZOCAINE 20% AER SPR (*SP) 56 GM CAN 1 SPRAY (09:10)
--- NOTE | 2021-12-27 12:27 | PC.NURSE ---
1025 Shannan from [facility] called and stated that DCFS wants to see pt before D/C. So Keep both Mom and Baby until DCFS states it is ok for Mom to take baby home. 1215 Kaya Draper from [facility] is here to see pt. A copy of her ID Badge is in the hard chart.
--- NOTE | 2021-12-27 14:23 | PCCCNOTE ---
Addendum entered by ONEYDA Teague 12/27/21 15:25: Spoke with Kaya, [facility] casino investigator, and they plan to have baby go home with pt.'s sister. She reports awaiting a baby from DCFS worker, Gonzalo, and then she will be up tonight for release of infant to her to then give to sister. RN, Sara, aware and copied Kaya's badge for chart. Original Note: [facility]. Patient referred to CC for positive marijuana UDS and other kids not in her custody. was not drug screened. Spoke with mother and her sister at bedside. Pt. reports plans to return home with FOB and baby. She reports having all necessary baby care items and setup with [facility]AC. She reports previous DCFS involvement with her 3 older children, but that her mother has guardianship/custody of them. 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 Pt. denies any community resource or substance use resource needs. She plans to continue current treatment with [facility]. Spoke with Patito Toribio [facility] hotline, and they took pt.'s situation as report ID#[id number]. Received call from Gonzalo Field Agent [phone] that he will be working with pt.'s care in [facility], but there will be [place] casino investigator to come see pt. here. Pt. knows DCFS is coming. Awaiting their determination on plan for baby's discharge. Will follow.
[2021-12-27 14:40] LABS: Rapid Plasma Reagin Non-Reactive (NonReactive)
--- NOTE | 2021-12-27 18:30 | PC.NURSE ---
1342 Gonzalo from [facility] called and stated that the will not be going home with Mom. DCFS will be taking custody. 1349 Called [facility] and reported that DCFS will take custody of infant. 1405 Another RN stated that she heard a loud argument coming from room 282. 1410 Informed our Property And Equipment Clerk MILEY Ulloa that we might need security and back up for this transfer. She stated to let her know if so. 1416 Shannan from confirmed that will be taken into DCFS custody. [address] Dorantes the Pedi of the [facility] decision. 1459 Gonzalo from [facility] ask if he could fax a form over for the Pedi to fill out? He was transferred by phone to Dr. Dorantes. 1503 Ask Laila about a [facility] sheep farm worker needing to be here for this transfer of custody? She stated to Call [facility] and check with them. 1507 Called Beatriz in and asked if a [facility] sheep farm worker needed to be here for this transfer of the infant? She stated yes and that she would call DCFS and make sure that they are sending someone. [address] Dorantes and informed him that the infant was being taken into DCFS custody and we needed a discharge. He will put one in soon. 1615 Kaya Draper [facility] director case management here. 1630 D/C paperwork gone over with DCFS worker and Aunt of the . Both V/U'd. 1728 Infant sent home in a car seat with the Aunt.
--- NOTE | 2021-12-27 18:59 | PC.NURSE ---
1025 Patient viewed the discharge video Mother & Baby Care, The First Two Weeks . Patient was given the opportunity and encouraged to ask questions. Patient verbalized understanding of information shared and has been given the mother/baby guide for home reference.
== END 2021-12-27 17:28 | disposition home or self-care (01) | DRG 540 ==
LOC: ANHOB2 12-27 14:00 → ANHLDR 12-29 10:15
PROVIDERS: Obstetrics & Gynecology; Admitting Provider Obstetrics & Gynecology; Referring Provider Advanced Practice Midwife; Visit Provider Obstetrics & Gynecology
PROC: 10D00Z1 Extraction of Products of Conception, Low, Open Approach (ICD-10-PCS; CPT 59514; principal; 2021-12-25 20:30)
DX: O32.1XX0 Maternal care for breech presentation, not applicable or unspecified (principal); O26.62 Liver and biliary tract disorders in childbirth; K83.1 Obstruction of bile duct; O76 Abnormality in fetal heart rate and rhythm complicating labor and delivery; O45.93 Premature separation of placenta, unspecified, third trimester; O99.284 Endocrine, nutritional and metabolic diseases complicating childbirth; E03.9 Hypothyroidism, unspecified; O99.824 Streptococcus B carrier state complicating childbirth; O99.334 Smoking (tobacco) complicating childbirth; F17.210 Nicotine dependence, cigarettes, uncomplicated; Z3A.37 37 weeks gestation of pregnancy; Z37.0 Single live birth; Z85.850 Personal history of malignant neoplasm of thyroid; Z90.89 Acquired absence of other organs; Z88.0 Allergy status to penicillin
CPT/HCPCS: 36415; 80307; 85025; 86592; 86850; 86880; 86900; 86901; 86902; 88307; A9270; J0131; J0690; J2274; J2405; J2590; J3010; J7120

== ENCOUNTER 2021-12-28 02:57 | Observation (INO) | payer OTHER, SELFPAY ==
[2021-12-28] VITALS (76 sets, daily range): BP systolic 78–116; BP diastolic 29–70; PULSE 50–142; RESP 10–22; TEMP 36.3–37.1; O2SAT 93–100
--- NOTE | ~2021-12-28 | CT_ITS ---
EXAMINATION: CT abdomen pelvis w con DATE: 12/28/2021 04:48 INDICATION: Abdominal pain. TECHNIQUE: Computed tomography (CT) of the abdomen and pelvis was performed with 100 mL Omnipaque 350 intravenous contrast. Automated exposure control and iterative reconstruction technique were employe d. The dose-length product was 1392.24 mGy-cm. COMPARISON: None. FINDINGS: The visualized portions of the lung bases demonstrate mild atelectasis. No pleural effusion . The heart size is normal. No pericardial effusion. The liver, gallbladder, spleen, pancreas, adrena l glands, and kidneys are normal. There is an umbilical hernia containing fat. There are no dilated l oops of bowel. The appendix is normal. The uterus is enlarged, consistent with recent . The endometrial complex measures 15 mm in thickness. There is gas, fat stranding, and trace fluid from re cent section. There are no pathologically enlarged lymph nodes. There is mild lumbar spondyl osis. IMPRESSION: 1. Surgical changes of recent section. 2. Endometrial complex measuring 15 mm in thickness, which may be hematoma. Retained products of conc eption cannot be excluded. 3. Umbilical hernia containing fat. Reviewed, dictated and finalized at location A. IMPRESSION: 1. Surgical changes of recent section. 2. Endometrial complex measuring 15 mm in thickness, which may be hematoma. Ret ained products of conception cannot be excluded. 3. Umbilical hernia containing fat.
--- NOTE | 2021-12-28 03:30 | ED.ABDPAIN ---
HPI - Abdominal Pain General Chief Complaint: Abdominal Pain Stated Complaint: recent delivery, pain and swelling Time Seen by Provider: 12/28/21 03:14 History of Present Illness HPI narrative: 36-year-old female presented to the emergency department for evaluation of worsening abdominal pain. Patient had a on Monday by Dr. Jefferson Patient was discharged from the hospital 4 PM yesterday. Patient states after getting home she began having increased abdominal burning and distention. Patient states she is passing urine. Patient states she is passing flatus and did have a bowel movement yesterday. Patient denies any increased vaginal bleeding. Related Data Home Medications Medication Instructions Recorded Confirmed levothyroxine 125 mcg tablet 225 mcg PO DAILY 09/18/19 12/25/21 vit no.95-ferrous 1 tablet PO DAILY 09/18/19 12/25/21 fumarate 28 mg-folic acid 800 mcg tablet () prednisone 2.5 mg tablet 2.5 mg PO DAILY 12/25/21 12/25/21 Allergies Allergy/AdvReac Type Severity Reaction Status Date / Time Penicillins Allergy Severe HIVES Verified 12/28/21 03:05 ketorolac Allergy Intermediate HIVES Verified 12/28/21 03:05 vancomycin Allergy Mild Itching Verified 12/28/21 03:05 Review of Systems Review of Systems: CONSTITUTIONAL: Denies fever, chills, or sweats. EYES: Denies visual changes, redness, or discharge. ENT: Denies rhinorrhea, congestion, sore throat, or otalgia. CARDIOVASCULAR: Denies chest pain, palpitations, or edema. RESPIRATORY: Denies cough or dyspnea. GASTROINTESTINAL: See HPI GENITOURINARY: See HPI SKIN: Denies rash or itching. MUSCULOSKELETAL: Denies back pain, joint pain, or myalgia. NEUROLOGIC: Denies headache, numbness, or weakness. PSYCHIATRIC: Denies anxiety or depression. [facility] Past Medical History Medical History (Updated 12/28/21 @ 07:13 by Robert Sosa MD) Anxiety Depression Surgical History Surgical History (Updated 09/18/19 @ 06:23 by Jason DejesusMD) H/O thyroidectomy H/O tubal ligation S/P tonsillectomy Family History Family History (Updated 12/25/21 @ 07:22 by Celine Barber RN) Other Unknown family medical history Social History Social History (Updated 09/18/19 @ 06:24 by Jason Dejesus, ) Smoking packs per day: 0.5 Smoking cigarettes per day: 10.0 Years smoked: 20 Smoking pack-years: 10.00 Smoking status: Current every day smoker Tobacco type: cigarettes Substance use: current Substance use type: marijuana Spiritual care concerns: No Exam Narrative: APPEARANCE: Well appearing, no pain, no distress, well-nourished. HEAD: normocephalic, atraumatic. EYES: PERRLA/EOMI, conjunctivae clear. NOSE: Normal no drainage EARS:TMS clear with good light reflex. THROAT: Pharynx clear, no exudate. NECK: Supple. No adenopathy, no masses. RESPIRATORY: Airway patent, respirations nonlabored. Clear to auscultation bilaterally, no rales, rhonchi, wheezing. CARDIOVASCULAR: Regular rate and rhythm without murmurs rubs or gallops. ABDOMINAL: Minimal tenderness to palpation of her abdomen. Surgical incisions are well-appearing. MUSCULOSKELETAL: Moves all extremities. Strength/ROM intact, No edema, No calf tenderness. NEURO: Alert. Cranial nerves II through XII intact. Grossly intact SKIN: Warm, dry. Normal Color Course Course Emergency Course: Patient attempted to provide a urine sample but initially missed. Bladder scan showed no retained urine. Patient is afebrile with no leukocytosis. Patient's hemoglobin is 7.8 which is decreased from 10.4 on 12/25. CMP is normal-appearing. Discussed the case with Dr. Jefferson and patient was accepted for admission to floor observation and pain control. Patient was comfortable with the plan for admission. Dr. Farrell was initially told about the CT read from stat read but was updated on the slightly modified read by our radiologist. UA showed no evidence of urin
[2021-12-28 03:45] LABS: Basophils Percent Auto 0.2 % (0.2-1.2); Eosinophils Absolute Auto 0.2 K/mm3 (0-0.3); Eosinophils Percent Auto 2.3 % (0-4.4); Hematocrit 24.5 % (37.0-47.0); Hemoglobin 7.8 g/dL (12.0-15.0); Immature Granulocyte Percent A 1.1 % (0-0.5); Lymphocytes Absolute Auto 1.77 K/mm3 (0.9-3.2); Lymphocytes Percent Auto 19.5 % (18.3-44.2); Mean Corpuscular HGB Conc 31.8 g/dl (32-36); Mean Corpuscular Volume 97.2 fl (80-100); Monocytes Absolute Auto 0.6 K/mm3 (0.1-0.6); Monocytes Percent Auto 6.6 % (2.6-8.5); Neutrophils Absolute Auto 6.4 K/mm3 (1.3-6.7); Neutrophils Percent Auto 70.3 % (45.5-73.1); Platelet Count Result 222 k/mm3 (150-375); Red Blood Count 2.52 M/mm3 (4.2-5.4); Red Cell Distribution Width 14.7 % (11.5-14.5); White Blood Count 9.1 K/mm3 (4.5-10.0)
[2021-12-28] MEDS: HYDROmorphone HCL INJ (*CRX) 1 MG/ML SYR 0.5 MG IV PUSH ×3 (03:50→07:15)
[2021-12-28 04:09] LABS: Lactic Acid Reflex 0.8 mmol/L (0.7-2.0)
[2021-12-28 04:10] LABS: Alanine Aminotransferase 8 U/L (6-35); Alkaline Phosphatase 91 U/L (38-126); Anion Gap 4 mmol/L (8-16); Aspartate Amino Transferase 28 U/L (14-36); Bilirubin,Total 0.1 mg/dL (0.2-1.3); Blood Urea Nitrogen 8 mg/dL (7-17); Calcium 8.5 mg/dL (8.4-10.2); Carbon Dioxide 25 mmol/L (22-30); Chloride 105 mmol/L (98-107); Estimated CRCL calculation 154 ml/min; Estimated Glomerular Filt Rate > 60; Glucose 89 mg/dL (65-110); Potassium 3.8 mmol/L (3.4-5.0); Sodium 134 mmol/L (137-145)
[2021-12-28 06:59] LABS: Appearance Urine Clear (Clear); Bilirubin Urine Negative (Negative); Blood Urine 2+ (Negative); Color Urine Yellow (Yellow); Glucose Urine UA Negative (Negative); Ketones Urine Negative (Negative); Leukocyte Esterase Ur Negative LEU/UL (Negative); Nitrate Urine Negative (Negative); Protein Urine Negative (Negative); Urobilinogen Urine 0.2 mg/dL (<2.0)
[2021-12-28 07:04] LABS: Mucus Urine Rare /lpf; Squamous Epithelial Cell Urine Rare /hpf (Few); WBC Urine 0-3 /hpf
[2021-12-28 07:08] LABS: Add Urine Microscopic? YES
--- NOTE | 2021-12-28 08:00 | PC.NURSE ---
Help pt place belly band around chest to compress breasts.
[2021-12-28] MEDS: SODIUM CHLORIDE 0.9% IV 1,000 ML 125 ML IV CONT (08:16)
--- NOTE | 2021-12-28 08:58 | LDADM ---
This patient, Olena Boone, was admitted to OB Post 113 on 12/28/21 at 0745 per wheelchair from ED. Plans for pain management and observation were discussed with patient. Patient/family oriented to hospital policies and general routines including ID bracelet, bed and alarms, visiting hours, pain management, procedures, bathroom and other care routines, personal items, smoking policy, room service/diet and guest tray routines, security routines, and visiting hours. Patient/Family are encouraged to report perceived risks to care and to ask questions if they do not understand what they are told or what they should do.
--- NOTE | 2021-12-28 09:28 | PC.NURSE ---
Dr. Jefferson on unit and has reviewed CT scan. in to see and assess pt. Orders received.
[2021-12-28] MEDS: oxyCODONE HCL (*CRX) 5 MG TAB IR 10 MG PO (10:02)
[2021-12-28] MEDS: DOCUSATE SODIUM 100 MG CAPSULE PO (10:02)
--- NOTE | 2021-12-28 10:25 | PC.NURSE ---
Pt states abdominal pain immediately decreased from a 10 to a 7 with voiding.
--- NOTE | 2021-12-28 10:30 | PC.NURSE ---
Informed pt that when her food gets here I want to get her up in the chair to eat. Also, want her to walk after the pain medicine has started working more.
--- NOTE | 2021-12-28 11:05 | PC.NURSE ---
Pt's family brought her in [place] [facility]. Pt sitting up on edge of bed to eat.
--- NOTE | 2021-12-28 11:32 | PC.NURSE ---
Dr. Jefferson informed pt voided 650 ml of urine with a forceful stream and straight cathed for an additional 55 ml of pale yellow clear urine. Pt states her pain decreased from a 10 to a 7 with her initial void. Informed MD pt also states pain decreases as she passes gas. Clarified pt doesn't need to resume Ursodiol or Prednisone. OK with Mylicon.
[2021-12-28] MEDS: SIMETHICONE 80 MG TAB.CHEW PO (12:23)
--- NOTE | 2021-12-28 12:50 | PC.NURSE ---
Pt walked in [place] with stand by assist and did well. Pt passed a large amount of gas while walking; states she felt even more relief afterwards.
[2021-12-28] MEDS: LEVOTHYROXINE SODIUM 75 MCG TABLET 225 MCG PO (12:52)
[2021-12-28] MEDS: IBUPROFEN 600 MG TABLET PO (14:27)
--- NOTE | 2021-12-28 14:45 | PC.NURSE ---
Pt states she feels like a new woman. Pt feels ready to go home.
--- NOTE | 2021-12-28 16:02 | PC.NURSE ---
Dr. Jefferson informed pt feeling much better since she has been passing gas today and is ready to go home. Discussed with MD that pt also didn't have any pain meds at home last night because her pharmacy closed before she could get them, but her family was picking them up this morning. Orders for discharge received.
--- NOTE | 2022-01-09 17:52 | PM.OBTRLD ---
OB - Triage/Final Diagnosis Visit Information Comments/Additional reasons for admission: I have assessed the risk for this patient, Olena Boone, and determined that she would benefit from observation care. Evaluation Laboratory results: Laboratory Tests 12/28/21 12/28/21 12/28/21 03:36 03:36 03:36 WBC 9.1 RBC 2.52 L Hgb 7.8 L Hct 24.5 L MCV 97.2 MCH 31.0 MCHC 31.8 L RDW 14.7 H Plt Count 222 MPV 11.0 H Immature Gran % (Auto) 1.1 H Neut % (Auto) 70.3 Lymph % (Auto) 19.5 [place] % (Auto) 6.6 Eos % (Auto) 2.3 Baso % (Auto) 0.2 Lymph # (Auto) 1.77 [place] # (Auto) 0.6 Eos # (Auto) 0.2 Baso # (Auto) 0.0 Abs Immat Gran (auto) 0.10 H Absolute Neuts (auto) 6.4 Absolute Nucleated RBC 0.0 Nucleated RBC % 0.0 Sodium 134 L Potassium 3.8 Chloride 105 Carbon Dioxide 25 Anion Gap 4 L BUN 8 Creatinine 0.60 L Estim Creat Clear Calc 154 Estimated GFR > 60 Glucose 89 Lactic Acid 0.8 Calcium 8.5 Total Bilirubin 0.1 L AST 28 ALT 8 Alkaline Phosphatase 91 Total Protein 6.0 L Albumin 3.0 L Urine Color Urine Appearance Urine pH Ur Specific [place] Urine Protein Urine Glucose (UA) Urine Ketones Ur Blood (Man) Urine Nitrate Urine Bilirubin Urine Urobilinogen Leukocyte Esterase Rfl Urine RBC Urine WBC Ur Squamous Epith Cells Urine Mucus 12/28/21 06:48 WBC RBC Hgb Hct MCV MCH MCHC RDW Plt Count MPV Immature Gran % (Auto) Neut % (Auto) Lymph % (Auto) [place] % (Auto) Eos % (Auto) Baso % (Auto) Lymph # (Auto) [place] # (Auto) Eos # (Auto) Baso # (Auto) Abs Immat Gran (auto) Absolute Neuts (auto) Absolute Nucleated RBC Nucleated RBC % Sodium Potassium Chloride Carbon Dioxide Anion Gap BUN Creatinine Estim Creat Clear Calc Estimated GFR Glucose Lactic Acid Calcium Total Bilirubin AST ALT Alkaline Phosphatase Total Protein Albumin Urine Color Yellow Urine Appearance Clear Urine pH 7.0 Ur Specific [place] 1.010 Urine Protein Negative Urine Glucose (UA) Negative Urine Ketones Negative Ur Blood (Man) 2+ H Urine Nitrate Negative Urine Bilirubin Negative Urine Urobilinogen 0.2 Leukocyte Esterase Rfl Negative Urine RBC 3-5 H Urine WBC 0-3 Ur Squamous Epith Cells Rare Urine Mucus Rare Final Diagnosis (1) Abdominal pain: Qualifiers: Abdominal location: lower abdomen, unspecified Qualified Code(s): R10.30 - Lower abdominal pain, unspecified Code(s): R10.9 - Unspecified abdominal pain Status: Acute
== END 2021-12-28 16:47 | disposition home or self-care (01) ==
LOC: ANHED 07:13 → ANHOBPP 07:43
PROVIDERS: Admitting Provider Obstetrics & Gynecology; Emergency Provider Emergency Medicine; Visit Provider Obstetrics & Gynecology
DX: O99.893 Other specified diseases and conditions complicating puerperium (principal); R10.30 Lower abdominal pain, unspecified; K42.9 Umbilical hernia without obstruction or gangrene; E89.0 Postprocedural hypothyroidism; F17.210 Nicotine dependence, cigarettes, uncomplicated; F12.90 Cannabis use, unspecified, uncomplicated
CPT/HCPCS: 36415; 74177; 80053; 81001; 83605; 85025; 96361; 96374; 96376; 99285; A9270; G0378; G0379; J1170; J7030; Q9967

== ENCOUNTER 2022-06-29 00:18 | Day surgery (SDC) | payer OTHER, SELFPAY ==
[2022-06-21 15:12] VITALS: BMI 33.8
--- NOTE | 2022-06-21 15:25 | PC.NURSE ---
Report to the Outpatient Waiting Room, entrance under the green pavilion located off [facility], at time __0900 on date __06/29/22 . Planned Procedure Time: _1100 . Time changes happen often and if your time is changed the preop area will call you the afternoon before. - You and your visitor will be asked to self-screen and do not enter if you have any COVID symptoms. - Only one visitor is requested with a max of two and NO children visitors are allowed at this time. - The patient visitor may be requested to leave or wait in car when not with patient due to distancing restrictions. - A mask is optional within the hospital at this time. Patients may have clear liquids (water, carbonated beverages, clear teas, apple juice) until 3 hours prior to surgery with a maximum of 20 ounces. - No food from midnight until time of surgery - Take the following medications with a SIP of water the morning of surgery: _SERTRALINE,LEVOTHROXINE, CLONAZEPAM, GEODON DO NOT STOP ANY OF YOUR OTHER PRESCRIPTION MEDICATIONS PRIOR TO SURGERY ?EXCEPT THE FOLLOWING Medications to discontinue per physician N/A Date to take last dose___N/A Please no make-up, nail romanian, hairspray, perfume, deodorant, or body powder the day of surgery. No jewelry (including any body piercings) or valuables the day of surgery, leave them at home. Please take a shower or bath the night before, or the morning of, surgery with an antibacterial soap. Wear comfortable, loose fitting clothing. Children are encouraged to wear pajamas. - Jewelry must be removed prior to entering the operating room. Rings and piercings that are not removed may be cut off. - The hospital will not accept responsibility for valuables. - Please leave all valuables, including medications, at home the day of surgery. If you are going home after surgery, a licensed dray driver must drive you home. - NO public transportation without another adult if you receive anesthesia. - We recommend that an adult stay with you for 24 hours following discharge. - We also recommend that you do not drive, make important decision, drink alcoholic beverages, or take any drugs that were not prescribed by your health care provider for at least 24 hours after your discharge time. Follow any additional instructions given to you from your surgeon. If you or anyone in your household have experienced Covid symptoms in the past week, please notify your surgeon or the nurse liaison at the phone number below for possible testing. Telephone instructions given to __MEGAN and asked if any additional questions and then verbalized understanding. Patient advised to call surgeon office or pre surgery nurse liaison [phone] if any additional questions.
[2022-06-29] VITALS (9 sets, daily range): BP systolic 94–131; BP diastolic 56–91; PULSE 61–106; RESP 15–18; TEMP 36.3–36.5; O2SAT 98–100; BMI 32.7
[2022-06-29] MEDS: LACTATED RINGERS 1,000 ML 30 ML IV CONT (09:25)
[2022-06-29] MEDS: ACETAMINOPHEN 500 MG TABLET 1000 MG PO (09:40)
--- NOTE | 2022-06-29 10:13 | WPDANESEPPF ---
Anes - Initial Pre Proc Eval Procedure: Operation Date: 06/29/22 11:00 Proposed Procedures p Laparoscopic Bilateral Salpingectomy - Angely Jefferson MD Date/Time: 06/29/22 10:13 Surgeon: Angely Jefferson MD Pre Op Diagnosis: Female Sterilization Patient Data Age: 37 Gender: F Height: 1.8 m Weight: 106.4 kg Last Vital Signs Temp 36.3 C L 06/29/22 09:10 Pulse 64 06/29/22 09:10 Resp 16 06/29/22 09:10 BP 101/62 06/29/22 09:10 Pulse Ox 99 06/29/22 09:10 O2 Del Method Room Air 06/29/22 09:10 Allergies Allergy/AdvReac Type Severity Reaction Status Date / Time Penicillins Allergy Severe HIVES Verified 06/29/22 09:16 ketorolac Allergy Intermediate HIVES Verified 06/29/22 09:16 vancomycin Allergy Mild Itching Verified 06/29/22 09:16 Home Medications Medication Instructions Recorded Confirmed Type clonazepam 1 mg tablet 1 mg PO DAILY 06/21/22 06/21/22 History levothyroxine 100 mcg tablet 100 mcg PO DAILY 06/21/22 06/21/22 History levothyroxine 175 mcg tablet 175 mcg PO DAILY 06/21/22 06/21/22 History sertraline 100 mg tablet 200 mg PO DAILY 06/21/22 06/21/22 History ziprasidone HCl 80 mg capsule 80 mg PO DAILY 06/21/22 06/21/22 History Patient hx anesthesia problems: none Family hx anesthesia problems: none Results Review: All pre-operative results and documents have been reviewed as part of the pre-operative evaluation. [facility] Past Medical History Medical History Anxiety Depression Surgical History Surgical History H/O thyroidectomy H/O tubal ligation S/P tonsillectomy Family History Family History Father Hypertension Mother CHF (congestive heart failure) COPD (chronic obstructive pulmonary disease) Hypertension Sibling Epilepsy Asthma Social History Social History Smoking packs per day: 0.5 Smoking cigarettes per day: 10.0 Years smoked: 25 Smoking pack-years: 12.50 Smoking status: Current every day smoker Tobacco type: cigarettes Alcohol intake: never Drinks per week: 0 Substance use: current Substance use type: marijuana Other substance usage details: 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 Informed Consent: The patient's anesthetic plan and its attendant risks and benefits were discussed with the patient/family/POA. Questions were solicited and answers provided to the satisfaction of the patient/family/POA.
--- NOTE | 2022-06-29 10:48 | SUR.PREOP ---
1048- Notified patient and mother, Paulette that procedure start time will be delayed. Patient and mother verbalized understanding. Patient to restroom to void at this time.
--- NOTE | 2022-06-29 11:50 | WPDHPUPDATE1 ---
History and Physical Update Update Date/Time: 06/29/22 11:50 History and Physical has been reviewed, including an updated exam of the patient. There are NO changes in the patient's condition. Risks, benefits, and alternatives have been discussed and questions answered. Patient agrees to proceed with procedure.
--- NOTE | 2022-06-29 12:50 | W.PM.PROC2 ---
Procedure Note - Detailed Date of Procedure 06/29/22 Pre-op Diagnosis Female Sterilization Post-op Diagnosis Same Procedure Performed Laparoscopic bilateral salpingectomy Surgeon Angely Jefferson MD Anesthesia General Indications Unwanted fertility Findings Normal pelvic anatomy Description of Procedure The patient was taken the operating room. She was prepped and draped in the dorsal lithotomy position after induction of general anesthesia. A 5 mm skin incision was made in the left upper quadrant of the abdominal skin. A 5 mm trocar was inserted the intra-abdominal cavity under direct visualization of the scope. Pneumoperitoneum was achieved. A 5 mm trocar was inserted in the left lower quadrant identical fashion. A 5 mm infraumbilical trocar was inserted in identical fashion as well. The bilateral fallopian tubes were removed. This was done by using a LigaSure cautery. The mesosalpinx adjacent to the tube was cauterized transected with LigaSure. This was initiated in the area the ovary and in a stepwise fashion moved medially to the area of the cornu of the uterus. Once there the fallopian tube was cauterized and transected. This was done in identical fashion on each side. The fallopian tubes were taken out through the left lower quadrant trocar site. The pneumoperitoneum was reduced. The trocars removed. The skin was closed with subcuticular 4 Monocryl and covered with Dermabond. She was taken to cover stable condition. Sponge lap and needle counts were correct x2. Estimated Blood Loss 5 Drains No Packing No Pathology Yes Complications No immediate complications Condition Stable Disposition PACU
[2022-06-29] MEDS: fentaNYL CITRATE INJ (*CRX) 100 MCG/2 ML VIAL 25 MCG IV PUSH ×4 (13:04→13:58)
[2022-06-29] MEDS: oxyCODONE HCL (*CRX) 5 MG TAB IR PO (14:17)
== END 2022-06-29 15:00 | disposition home or self-care (01) ==
PROVIDERS: Visit Provider Obstetrics & Gynecology
PROC: (CPT 49320; principal; 2022-06-29 11:00)
DX: Z30.2 Encounter for sterilization (principal); F41.9 Anxiety disorder, unspecified; F32.A Depression, unspecified; E89.0 Postprocedural hypothyroidism; F17.210 Nicotine dependence, cigarettes, uncomplicated; E66.9 Obesity, unspecified; Z68.32 Body mass index [BMI] 32.0-32.9, adult; F12.90 Cannabis use, unspecified, uncomplicated; F15.21 Other stimulant dependence, in remission; F11.21 Opioid dependence, in remission
CPT/HCPCS: 58661; 88302; A9270; J0330; J1100; J2250; J2405; J2704; J3010; J7120

== ENCOUNTER 2024-05-13 17:50 | Emergency (ER) | payer OTHER, SELFPAY ==
[2024-05-13] VITALS (17 sets, daily range): BP systolic 81–97; BP diastolic 38–77; PULSE 49–80; RESP 10–22; TEMP 36.3–36.8; O2SAT 85–100
--- NOTE | 2024-05-13 18:26 | ED_ITS ---
HPI - General Adult General Chief complaint: Nausea/Vomiting/Diarrhea Stated complaint: Vomiting/Diarrhea History of Present Illness HPI narrative: Olena is a 38F with a PMH of tobacco abuse that presented to the ED with several days of non-bloody diarrhea and non-bloody vomiting. She has several episodes of bother per day along with epigastric pain and LUQ pain. No sick contacts, no fevers, no night sweats, and no recent antibiotics. It is not improving at all so she came to the ED. Related Data Home Medications ?Medication ?Instructions ?Recorded ?Confirmed ?Last Taken ?Type clonazepam 1 mg tablet 1 mg PO DAILY 06/21/22 08/10/22 Unknown History levothyroxine 100 mcg tablet 100 mcg PO DAILY 06/21/22 08/10/22 Unknown History levothyroxine 175 mcg tablet 175 mcg PO DAILY 06/21/22 08/10/22 Unknown History sertraline 100 mg tablet 200 mg PO DAILY 06/21/22 08/10/22 Unknown History ziprasidone HCl 80 mg capsule 80 mg PO DAILY 06/21/22 08/10/22 Unknown History Allergies Allergy/AdvReac Type Severity Reaction Status Date / Time Penicillins Allergy Severe HIVES Verified 05/13/24 18:15 ketorolac Allergy Intermediate HIVES Verified 05/13/24 18:15 vancomycin Allergy Mild Itching Verified 05/13/24 18:15 Review of Systems 2 Review of Systems: All systems reviewed & are unremarkable except as noted in HPI and below PMFSH Past Medical History Medical History History of blood transfusion History of thyroid cancer Depression Anxiety Surgical History Surgical History delivery delivered H/O thyroidectomy S/P tonsillectomy H/O tubal ligation Family History Family History Father Hypertension Mother CHF (congestive heart failure) COPD (chronic obstructive pulmonary disease) Hypertension Cerebrovascular accident Sibling Epilepsy Asthma Social History Social History Smoking packs per day: 0.5 Smoking cigarettes per day: 10.0 Years smoked: 25 Smoking pack-years: 12.50 Smoking status: Current every day smoker Tobacco type: cigarettes Alcohol intake: never Drinks per week: 0 Substance use: current Substance use type: marijuana Other substance usage details: 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 Last use: THC on 12/24/21 Living arrangements: with family Occupation/Education: unemployed Spiritual care concerns: No Exam 2 Const: General: cooperative, healthy appearing, comfortable, no acute distress, well developed, alert, awake and Physically active O rientation/consciousness: oriented to person, oriented to place and oriented to time HENMT: Head: normal to inspection, normocephalic and atraumatic Ears: h earing grossly normal bilaterally and external ears normal Face/Nose/Sinus: N ormal external nose present Eyes: General: appearance normal, both eyes and all related structures P eriorbital: periorbital findings normal Sclera: sclerae normal Pupils: E qual, round and reactive pupils present Neck: Neck: normal visual inspection Chest: Chest palpation & inspection: normal inspection of the chest Resp: Effort & Inspection: normal respiratory effort, able to speak in complete sentences and no respiratory distress Auscultation: clear to auscultation bilaterally Cardio: Jugular venous distension: no JVD Rate: regular rate Rhythm: r egular rhythm GI: Inspection: normal to inspection GI Palp: Yes Soft to palpation A uscultation: normal bowel sounds Other: hyperactive bowel sounds. TTP in the epigastric region Skin: General skin exam: normal color and no rashes or lesions noted Neuro: General: oriented to person, oriented to place and oriented to time Cranial nerves: Yes Equal, round and reactive pupils present Extrem: General: normal to inspection Course Course Emergency Course: ordered fluis, labs, zofran and dicyclomine Labs showed mild anemia and largely unremarkable chemistries. After the first liter she felt a little better. However, shortly after starting the second she received word of a family emergency and requested to leave. We discussed how this is not recommended and then she stated she wants to leave anyway. We discussed how leaving early could lead to disability, suffering or . She signed out AMA. Vital Signs Vital signs: Vital Signs Temperature 97.3 F L 05/13/24 18:00 Pulse Rate 80 05/13/24 18:00 Respiratory Rate 18 05/13/24 18:00 Blood Pressure 83/77 L 05/13/24 18:00 Pulse Oximetry 99 12/23/24 18:00 Oxygen Delivery Room Air 05/13/24 18:00 Temperature 98.2 F 05/13/24 20:10 Pulse Rate 55 L 05/13/24 20:01 Respiratory Rate 13 05/13/24 20:01 Blood Pressure 97/53 L 05/13/24 20:01 Pulse Oximetry 100 05/13/24 20:01 Oxygen Delivery Room Air 05/13/24 18:00 Medical Decision Making Vital Signs Vital Signs: Vital Signs Temperature 97.3 F L 05/13/24 18:00 Pulse Rate 80 05/13/24 18:00 Respiratory Rate 18 05/13/24 18:00 Blood Pressure 83/77 L 05/13/24 18:00 Pulse Oximetry 99 05/13/24 18:00 Oxygen Delivery Room Air 05/13/24 18:00 Temperature 98.2 F 05/13/24 20:10 Pulse Rate 55 L 05/13/24 20:01 Respiratory Rate 13 05/13/24 20:01 Blood Pressure 97/53 L 05/13/24 20:01 Pulse Oximetry 100 05/13/24 20:01 Oxygen Delivery Room Air 05/13/24 18:00 Lab Data 05/13/24 18:33 05/13/24 18:33 Labs: Lab Results 05/13/24 05/13/24 Range/Units 18:33 19:59 WBC 5.3 (4.8-10.8) K/mm3 RBC 3.25 L (4.20-5.40) M/mm3 Hgb 10.3 L (12.0-15.0) g/dL Hct 31.5 L (35.0-49.0) % MCV 96.9 (78.0-102.0) fL MCH 31.7 H (27.0-31.0) pg MCHC 32.7 (32-36) g/dL RDW 13.7 (11.6-14.4) % Plt Count 203 (150-420) K/mm3 MPV 10.8 (9.2-11.8) fl Immature Gran % (Auto) 0.4 H (0.0-0.0) % Neut % (Auto) 46.9 L (50.0-70.0) % Lymph % (Auto) 42.5 H (18.0-42.0) % [place] % (Auto) 5.1 (2.0-11.0) % Eos % (Auto) 4.9 (1.0-6.0) % Baso % (Auto) 0.2 (0.0-1.0) % Lymph # (Auto) 2.26 (1.10-4.50) K/mm3 [place] # (Auto) 0.27 (0.10-0.90) K/mm3 Eos # (Auto) 0.26 (0.02-0.50) K/mm3 Baso # (Auto) 0.01 (0.00-0.10) K/mm3 Abs Immat Gran (auto) 0.02 H (0.00-0.00) K/mm3 Absolute Neuts (auto) 2.50 (1.70-7.20) K/mm3 Absolute Nucleated RBC 0.00 (0.00-0.00) K/mm3 Nucleated RBC % 0.0 (0-0.0) % Sodium 140 (136-145) mmol/L Potassium 3.8 (3.5-5.1) mmol/L Chloride 103 (98-108) mmol/L Carbon Dioxide 30 (21-32) mmol/L Anion Gap 7 (4-12) mmol/L BUN 14 (7-18) mg/dL Creatinine 1.06 H (0.55-1.02) mg/dL Estim Creat Clear Calc 76 ml/min Estimated GFR 58 L (59 - ) Glucose 94 (70-99) mg/dL Calculated Osmolality 290 (285-295) mOsm/kg Lactic Acid 0.7 (0.4-2.0) mmol/L Calcium 8.7 (8.5-10.1) mg/dL Total Bilirubin 0.3 (0.00-1.00) mg/dL AST 24 (15-37) U/L ALT 25 (14-59) U/L Alkaline Phosphatase 45 L (46-116) U/L Total Protein 7.1 (6.4-8.2) g/dL Albumin 3.7 (3.4-5.0) g/dL Lipase 35 (16-77) U/L TSH Pending Discharge Plan Discharge Clinical Impression: Gastroenteritis Patient Disposition: Left Against Medical Advice Condition: Serious Patient Language: Armenian Prescriptions: No Action ziprasidone HCl 80 mg capsule 80 mg PO DAILY levothyroxine 175 mcg tablet 175 mcg PO DAILY sertraline 100 mg tablet 200 mg PO DAILY clonazepam 1 mg tablet 1 mg PO DAILY levothyroxine 100 mcg tablet 100 mcg PO DAILY hydrocodone-acetaminophen 5-325 mg tablet 1 tablet PO Q4H PRN (Reason: pain) Qty: 10 0RF Follow-up/Referrals: Lisa,Torri Turner APRN [Primary Care Provider] -
[2024-05-13 18:36] LABS: Basophils Absolute Auto 0.01 K/mm3 (0.00-0.10); Basophils Percent Auto 0.2 % (0.0-1.0); Eosinophils Absolute Auto 0.26 K/mm3 (0.02-0.50); Eosinophils Percent Auto 4.9 % (1.0-6.0); Hematocrit 31.5 % (35.0-49.0); Hemoglobin 10.3 g/dL (12.0-15.0); Immature Granulocyte Absolute 0.02 K/mm3 (0.00-0.00); Immature Granulocyte Percent A 0.4 % (0.0-0.0); Lymphocytes Absolute Auto 2.26 K/mm3 (1.10-4.50); Lymphocytes Percent Auto 42.5 % (18.0-42.0); Mean Corpuscular HGB Conc 32.7 g/dL (32-36); Mean Corpuscular Hemoglobin 31.7 pg (27.0-31.0); Mean Corpuscular Volume 96.9 fL (78.0-102.0); Mean Platelet Volume 10.8 fl (9.2-11.8); Monocytes Absolute Auto 0.27 K/mm3 (0.10-0.90); Monocytes Percent Auto 5.1 % (2.0-11.0); Neutrophils Percent Auto 46.9 % (50.0-70.0); Platelet Count Result 203 K/mm3 (150-420); Red Blood Count 3.25 M/mm3 (4.20-5.40); Red Cell Distribution Width 13.7 % (11.6-14.4); White Blood Count 5.3 K/mm3 (4.8-10.8)
[2024-05-13] MEDS: SODIUM CHLORIDE 0.9% IV 1,000 ML 999 ML IV CONT ×2 (18:44→19:50)
[2024-05-13] MEDS: ONDANSETRON INJ 4 MG/2 ML VIAL IV PUSH (18:44)
[2024-05-13] MEDS: DICYCLOMINE HCL INJ 20 MG/2 ML VIAL IM (18:46)
[2024-05-13 18:52] LABS: Alanine Aminotransferase 25 U/L (14-59); Albumin Level 3.7 g/dL (3.4-5.0); Alkaline Phosphatase 45 U/L (46-116); Anion Gap 7 mmol/L (4-12); Aspartate Amino Transferase 24 U/L (15-37); Bilirubin,Total 0.3 mg/dL (0.00-1.00); Blood Urea Nitrogen 14 mg/dL (7-18); Calcium 8.7 mg/dL (8.5-10.1); Carbon Dioxide 30 mmol/L (21-32); Chloride 103 mmol/L (98-108); Estimated CRCL calculation 76 ml/min; Estimated Glomerular Filt Rate 58; Glucose 94 mg/dL (70-99); Lipase 35 U/L (16-77); Osmolality Calculated 290 mOsm/kg (285-295); Potassium 3.8 mmol/L (3.5-5.1); Sodium 140 mmol/L (136-145); Total Protein 7.1 g/dL (6.4-8.2)
[2024-05-13 18:57] LABS: Lactic Acid Reflex 0.7 mmol/L (0.4-2.0)
--- NOTE | 2024-05-13 19:32 | PC.NURSE ---
pt reports normal BP is 90/50 for her. ERP is aware. pt denies any need or complaints at present. report to vinh shannon.
--- NOTE | 2024-05-13 19:40 | PC.NURSE ---
patient resting on stretcher without distress, ivf infusing. RN monitoring. patient update provided. patient denies further needs at this time. call light within reach.
--- NOTE | 2024-05-13 19:51 | PC.NURSE ---
ERP DR. Conner at patient bedside for update at this time.
--- NOTE | 2024-05-13 19:59 | PC.NURSE ---
patient called out, stating she is feeling better and would like to leave. Patient education provided, second bag of IVF infusing per order. patient says she has a family member in another ER and children to take care of. patient A/O x 4. ERP Dr. Conner made aware of patient request, went to patient bedside to speak with her.
[2024-05-13 20:35] LABS: Thyroid Stimulating Hormone > 100.00 uIU/mL (0.36-3.74)
== END 2024-05-13 20:12 | disposition left against medical advice (07) ==
PROVIDERS: Emergency Provider Family Medicine; PCP Nurse Practitioner Family
DX: K52.9 Noninfective gastroenteritis and colitis, unspecified (principal); E89.0 Postprocedural hypothyroidism; F41.9 Anxiety disorder, unspecified; F32.A Depression, unspecified; F17.210 Nicotine dependence, cigarettes, uncomplicated
CPT/HCPCS: 36415; 80053; 83605; 83690; 84443; 85025; 96361; 96372; 96374; 99284; J0500; J2405; J7030

== ENCOUNTER 2024-11-26 00:52 | Day surgery (SDC) | payer OTHER, SELFPAY ==
[2024-11-19 09:29] VITALS: BMI 29.2
--- NOTE | 2024-11-19 09:38 | PC.NURSE ---
Report to the Outpatient Waiting Room, entrance under the green pavilion located off [facility], at time __0900_ on date 11/26/24_. Planned Procedure Time: _1100__.? Time changes happen often and if your time is changed the preop area will call you the afternoon before. - You and your visitor will be asked to self-screen and do not enter if you have any COVID symptoms. Please call surgeon if you need to reschedule. - A mask is optional within the hospital at this time. Patients may have clear liquids (water, carbonated beverages, clear teas, apple juice) until 3 hours prior to surgery with a maximum of 20 ounces. - No food from midnight until time of surgery and no smoking, or chewing tobacco (or any form of nicotine). No chewing gum, candy or mints. - Infants may have breast milk until 4 hours before surgery, infant formula 6 hours prior to surgery. - Children will be allowed to drink immediately following surgery.? If applicable, please bring a bottle or sippy cup to assist with drinking. Juice, water, soda, and popsicles are readily available.? For infants on formula, please bring formula the day of surgery.? Pacifiers are allowed. Take only the following medications with a SIP of water on the morning of surgery: BUPROPION, BUSPIRONE, LEVOTHYROXINE, CLONAZEPAM, ZIPRASIDONE DO NOT STOP ANY OF YOUR OTHER PRESCRIPTION MEDICATIONS PRIOR TO SURGERY EXCEPT THE FOLLOWING Hold all vitamins and supplements for 3 days per anesthesiologist. Medications to discontinue per physician Date to take last dose Please no make-up, nail yakut, hairspray, perfume, deodorant, or body powder the day of surgery.? No jewelry (including any body piercings) or valuables the day of surgery, leave them at home.? Please take a shower or bath the night before, or the morning of, surgery with an antibacterial soap.? Wear comfortable, loose fitting clothing.? Children are encouraged to wear pajamas. - Jewelry must be removed prior to entering the operating room.? Rings and piercings that are not removed may be cut off. - The hospital will not accept responsibility for valuables.? - Please leave all valuables, including medications, at home the day of surgery. If you are going home after surgery, a licensed sales driver must drive you home.? - NO public transportation without another adult if you receive anesthesia. - We recommend that an adult stay with you for 24 hours following discharge. - We also recommend that you do not drive, make important decision, drink alcoholic beverages, or take any drugs that were not prescribed by your health care provider for at least 24 hours after your discharge time. For Pediatric surgeries, we recommend two adults accompany the child home. Follow any additional instructions given to you from your surgeon. Telephone instructions given to __PATIENT__and asked if any additional questions and then verbalized understanding. Patient advised to call surgeon office or pre surgery nurse liaison [phone] if any additional questions.
--- OUTSIDE RECORDS SUMMARY | 2024-11-26 00:54 | XMS_ITS ---
Author Organization Unknown Address [address] [place], [place] [id number] Phone Care Team Providers Care Fiberglass Tube Molder Name Role Phone MAYELIN TURNER Attending Unavailable NO PCP Primary Unavailable Immunization Immunization Date Status Additional Notes Code Code System DTP 1986 Completed 01 CVX DTP 1986 Completed CVX DTP 02/17/1987 Completed 01 CVX DTP 02/23/1988 Completed 01 CVX DTP 12/23/1991 Completed 01 CVX OPV 1986 Completed 02 CVX OPV 1986 Completed 02 CVX OPV 02/17/1987 Completed 02 CVX OPV 02/23/1988 Completed 02 CVX OPV 12/23/1991 Completed 02 CVX MMR 10/01/1987 Completed 03 CVX MMR 12/23/1991 Completed 03 CVX Hep B, adolescent or pediatric 02/06/1996 Completed 08 CVX Hep B, adolescent or pediatric 04/25/1996 Completed 08 CVX Hep B, adolescent or pediatric 08/06/1996 Completed 08 CVX Td (adult), 2 Lf tetanus toxoid, preservative free, adsorbed 08/07/2000 Completed 09 CVX pneumococcal polysaccharide PPV23 03/07/2014 Completed 33 CVX Tdap 09/18/2019 Completed 115 CVX Influenza, split virus, trivalent, PF 03/22/2014 Completed 140 CVX Influenza, split virus, quadrivalent, PF 03/07/2014 Completed 150 CVX Influenza, split virus, quadrivalent, PF 07/15/2019 Completed 150 CVX Social History Type Status Start Date End Date Code Code Syst em Smoking History Current every day smoker [id number] SNOMED CT Sex Female Hospital Discharge Instructions Should you have any questions prior to discharge, please contact a member of your healthcare team. If you have left the hospital and have any questions, please contact your primary care physician. Reason For Referral No Data Found Plan of Treatment No Data Found Encounters Encounter Diagnosis Start Date Code Code Sys tem Long-term current use of drug therapy 12/01/2023 [id number] SNOMED-CT Personal Care Team Section
--- OUTSIDE RECORDS SUMMARY | 2024-11-26 00:54 | XMS_ITS | Clinical Summary ---
Author Organization [facility] Address [address] [place] [address] Phone Care Team Providers Care Litigation Secretary Name Role Phone Louise Llamas Primary Care Provider + Allergies Active Allergy Reactions Criticality Noted Date Comments Ketorolac Tromethamine Anaphylaxis,Rash High 018 Penicillins Hives,Rash High 05/29/2018 Medications lithium 300 MG Capsule 09/23/2020 Active traZODone (DESYREL) 150 MG Tablet 09/23/2020 Active propranolol (INDERAL) 10 MG Tablet 09/23/2020 Active OLANZapine (ZYPREXA) 20 MG Tablet 09/23/2020 Active hydrOXYzine (VISTARIL) 50 MG Capsule 09/23/2020 Active hydrOXYzine (VISTARIL) 25 MG Capsule 09/23/2020 Active levothyroxine (SYNTHROID) 200 MCG Tablet Take 1 Tablet by mouth daily. 90 Tablet 1 04/14/2021 Active Family History Medical History Relation Name Comments Cancer Brother Oral Cancer High Cholesterol Father Hypertension Father Anxiety disorder Mother Chronic Obstructive Pulmonary Disease Mother Congestive Heart Failure Mother Depression Mother Leukemia/Lymphoma Mother Seizures Sister 1 No Known Problems Sister 2 No Known Problems Sister 3 Relation Name Status Comments Brother Alive Father Alive Mother Alive Sister 1 Alive Sister 2 Alive Sister 3 Alive Social History Tobacco Use Types Packs/Day Years Used Date Smoking Tobacco: Every Day Cigarettes Smokeless Tobacco: Never Tobacco Cessation:Ready to Q uit: No; Counseling Given: Yes Alcohol Use Standard Drinks/Week Comments Yes 0 (1 standard drink = 0.6 oz pur e alcohol) Sexually Active Control Partners Comments Yes Male Comments No Sex and Gender Information Value Date Recorded Sex Assigned at Not on file Legal Sex Female 1:42 PM CDT Gender Identity Not on file Sexual Orientation Not on file Last Filed Vital Signs Vital Sign Reading Time Taken Comments Blood Pressure 100/60 11/20/2020 11:10 AM CDT Pulse 87 11/20/2020 11:10 AM CDT Temperature 35.9 C (96.6 F) 11/20/2020 11:10 AM CDT Respiratory Rate 16 11/20/2020 11:10 AM CDT Oxygen Saturation 98% 11/20/2020 11:10 AM CDT Inhaled Oxygen Concentration - - Weight 103.9 kg (229 lb) 11/20/2020 11:10 AM CDT Height 180.3 cm (5' 11) 11/20/2020 11:10 AM CDT Body Mass Index 31.94 11/20/2020 11:10 AM CDT Plan of Treatment Health Maintenance Due Date Last Done Comments Hepatitis C Virus (HCV) Screening 1986 SARS-COV-2 Immunization ( season) 2024 Influenza Immunization (Season Ended) 2025 07/15/2019, 03/22/2014, 03/07/2014 Respiratory Syncytial Virus (RSV) Immunization (Adult) (1 - 1-dose 75+ series) 2061 Hepatitis B Immunization Completed 997, 04/25/1996, 02/06/1996 Pneumococcal Immunization Combined Aged Out 03/07/2014 No longer eligible based on patient's age to complete this topic DTaP/Tdap/Td Immunization Discontinued 2019, 08/07/2000, 12/23/1991, Additional history exists TdaP Immunization Completed 09/18/2019 Human Papillomavirus (HPV) Immunization Aged Out No longer eligible based on patient's age to complete this topic Meningococcal Immunization (ACWY) Aged Out No longer eligible based on patient's age to complete this topic Rotavirus Immunization Aged Out No lo nger eligible based on patient's age to complete this topic Insurance [place]ICAID [place] Care Teams Litigation Secretary Relationship Specialty Start Date End Date Louise Llamas PAC [address] [place], [place] [id number] PCP - General Advanced Practice Nurse 11/04/20
--- OUTSIDE RECORDS SUMMARY | 2024-11-26 00:55 | XMS_ITS | Clinical Summary ---
Author Organization [facility] Address [address] [place] [address] Care Team Providers Care Wide Area Network Administrator Name Role Phone Ashley Summers MD Primary Care Provider [phone] Source Comments [facility],non-owned Affiliates and Associated Physician Practices is amultiple site organization consisting of ambulatory clinics and hospital sitesin [place], [place], [place] and [place]. This disclosure is being madepursuant to the Care Everywhere program and may not contain all information available regarding this patient. Last updated 18.[facility] Allergies Active Allergy Reactions Criticality Noted Date Comments Ketorolac Tromethamine Rash Medium 03/01/2018 Penicillins Rash Medium 05/29/2018 Ketorolac Other 05/29/2018 Unknown will check with patient. Medications * Be aware that medications may not be up to date on this document. Alwaysverify current medications with the patient. Sdjmllle-Vtq-Oc -FA ( VITAMIN WITH IRON) tablet Take 1 tablet by mouth once daily Active Riboflavin 400 MGIndications:H eadache prevention Take 1 tablet by mouth once daily Reasons: Headache prevention 30 tablet 5 9 Active Additional Information Patient not taking.Reported on 08/11/2021 Azithromycin (ZITHROMAX Z-RUPAL PO)Indications: for URI given to by primary OB Take 250 mg by mouth Reasons: for URI given to by primary OB 9 Active albuterol HFA (PROVENTIL;VENT KELI;PROAIR) 108 (90 BASE) MCG/ACT inhalerIndicati ons:for URI Inhale 2 puffs by mouth every 6 hours as needed Reasons: for URI Active metoclopramide (REGLAN) 10 MG tabletIndicatio ns:Constipation Take 1 tablet by mouth 3 times daily before meals Reasons: Constipation 90 tablet 3 9 Active Additional Information Patient not taking.Reported on 08/11/2021 ibuprofen (MOTRIN) 200 MG tablet Take by mouth every 6 hours as needed for Pain Active SYNTHROID 125 MCG tablet Take 2 tablets by mouth daily before breakfast 60 tablet 5 9 Active Additional Information Patient taking differently: 275 mcgOral DAILY BEFORE BREAKFAST, Informant: Patient, Reported on 08/11/2021 OLANZapine, disintegrating, (ZYPREXA ZYDIS) 20 MG tabletIndicatio ns:Mixed Bipolar Affective Disorder Take 20 mg by mouth at bedtime Reasons: MIXED BIPOLAR AFFECTIVE DISORDER Active sertraline (ZOLOFT) 50 MG tablet Take 50 mg by mouth once daily Active Active Problems Problem Noted Date Diagnosed Date Postoperative hypothyroidism 09/10/2018 Vitamin D deficiency 09/10/2018 Thyroid cancer 09/10/2018 Anemia during in third trimester 06/27 Overview (06/27/2018): Labs from 06/25/18: H/H 9.4/27.5 Assessment & Plan (06/27/2018 6:34 PM MAGICIAN HELPER): Would avoid oral iron as this may have interfere with levothyroxine absorption May need IV iron infusion Plan: Request iron studies Rh negative status during 06/27/2018 Overview (06/29/2018): Antibody screen negative (02/01/2018) Antibody positive for anti D- titers 1:4 on 03/01/18 (after RhoGAM) Antibody screen positive on 06/25/2018, titers <1 Assessment & Plan (06/27/2018 6:36 PM MAGICIAN HELPER): Antibody screen should not have been persistently positive 20+ weeks after RhoGAM Plan: Request antibody titer for antibody screen performed on 06/25/2018 [facility] screening for severe anemia at 30 weeks Hypothyroid in , antepartum 05/01/2018 Overview (06/27/2018): thyroidectomy in 2002 after dx with thyroid cancer TSH: 89.61 (04/05/18), 179.843 (06/25/18) Free T4: 0.34 (04/05/18), 0.28 (06/25/18) Assessment & Plan (06/27/2018 6:56 PM MAGICIAN HELPER): Severely elevated TSH, with worsened value since earlier assessment Plan: Referral to Endocrinology H pylori antibody testing ordered to exclude a cause of poor absorption of levothyroxine Prescribed levothyroxine 250 mcg daily with double dosing on the weekends Serial TSH every 4 weeks Serial growth and screen for goiter every 4 weeks Weekly 10 point biophysical profile starting at 30 weeks Maternal gonorrhea, antepartum 05/01/2018 Marijuana use 05/01/2018 Tobacco smoking affecting 05/01/2018 Depression affecting 05/01/2018 Overview (06/27/2018): Psych Evaluation -[facility] Positive urine drug screen 03/01/2018 Overview (05/29/2018): Positive for amphetamines. 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 05/01/2018 05/30/2018 Overview (05/01/2018): Received rhogam 02/01/2018, anti D antibody positive on 03/01/18 with titers 1:4 Family History Medical History Relation Name Comments Hypertension Father CAD (Coronary Artery Disease) Mother COPD - Chronic Obstructive Pulmonary Disease Mother Hypertension Mother Seizures Sister Relation Name Status Comments Brother Alive Father Alive Maternal Grandfather Maternal Grandmother Alive Mother Alive Paternal Grandfather Paternal Grandmother Sister Alive half-sister 1 Alive half-sister 2 Alive Social History Tobacco Use Types Packs/Day Years Used Date Smoking Tobacco: Every Day Cigarettes 0.5 18 Smokeless Tobacco: Never Tobacco Cessation:Ready to Q uit: No Alcohol Use Standard Drinks/Week Comments No 0 (1 standard drink = 0.6 oz pur e alcohol) Comments No Sex and Gender Information Value Date Recorded Sex Assigned at Not on file Legal Sex Female 8:41 AM MAGICIAN HELPER Gender Identity Not on file Sexual Orientation Not on file Last Filed Vital Signs Vital Sign Reading Time Taken Comments Blood Pressure 104/61 08/11/2021 11:37 AM CDT Pulse 67 08/11/2021 11:37 AM CDT Temperature 36.6 C (97.9 F) 09/10/2018 11:04 AM CDT Respiratory Rate - - Oxygen Saturation 99% 09/10/2018 11:04 AM CDT Inhaled Oxygen Concentration - - Weight 105.2 kg (232 lb) 08/11/2021 11:37 AM CDT Height 180.3 cm (5' 11) 08/11/2021 11:37 AM CDT Body Mass Index 32.36 08/11/2021 11:37 AM CDT Plan of Treatment Health Maintenance Due Date Last Done Comments HEPATITIS C SCREENING 06/23/2004 DTAP/TDAP/TD VACCINES (1 - Tdap) 2005 HEPATITIS B VACCINE (1 of 3 - 19+ 3-dose series) 2005 PNEUMOCOCCAL VACCINE (1 of 2 - PCV) 2005 COVID-19 VACCINE (1 - 2023-2 5 season) 2024 DEPRESSION SCREENING 05/22/2024 PAP SMEAR 06/17/2024 06/17/2021, 06/17/2021 INFLUENZA VACCINE (#1) 2025 , 03/07/2014 ZOSTER VACCINE (1 of 2) 2036 HIV SCREENING Completed 06/16/2021 HIB VACCINE Aged Out No longer eligi ble based on patient's age to complete this topic HPV VACCINE Aged Out No longer eligi ble based on patient's age to complete this topic MENINGOCOCCAL (Group B) VACCINE SHARED DECISION-MAKING Aged Out No longer eligible based on patient's age to complete this topic MENINGOCOCCAL GROUPS A/C/Y/W VACCINE Aged Out No longer eligible b ased on patient's age to complete this topic Insurance Care Teams Wide Area Network Administrator Relationship Specialty Start Date End Date Ashley Summers MD PCP - General Obstetrics and Gynecology 04/10/18
--- OUTSIDE RECORDS SUMMARY | 2024-11-26 00:55 | XMS_ITS | Data Portability ---
Author Organization [facility] X[place] Address [address] [place] [address] Care Team Providers Care Md Do Resident Urgent Care Name Role Phone [facility] Psychiatrist Assessment Encounter Date Assessment Date Assessment LastModified by Organization Details LastModified Time 07/07/2022 07/07/2022 this patient is 37-year-old female presents for follow-up on laparoscopic salpingectomy. She is recovering normally. Her incisions are clean dry and intact. Her hernia near the umbilicus continues to hurt. She has a date to see General surgery. She will follow-up here as needed [email or web address] Not available 07/07/2022 15:45:48 09/16/2024 09/16/2024 Annual gynecological exam performed. Patient will come back in a year unless there are new symptoms. Not available 09/16/2024 12:46:14 Plan of Treatment Reminders Order Date Submit Date Provider Last Modified By Organization Details Last Modified Time Details Appointments SURG Hysterosc opy 2024 11:00A Sandra JEFFERSON MD Not available Not available Not available SURG POST OP 2024 11:45A Sandra JEFFERSON MD Not available Not available Not available Lab hbcab (hepatiti s B core Ab) igm, serum 2024 025 [facility] (Lab), [address], [place], [address], 09/30/2024 04:02:23 HBsAg (hepatiti s B surface Ag), serum 2024 025 [facility] (Lab), [address], [place], [address], 09/30/2024 04:02:24 hepatitis C virus Ab, serum 2024 025 [facility] (Lab), [address], [place], [address], 09/30/2024 04:02:24 HIV 1+2 AB + HIV 1 p24 Ag, qualitati ve immunoass ay, serum 2024 025 [facility] (Lab), [address], [place], [address], 09/30/2024 04:02:24 RPR (rapid plasma reagin), serum 2024 025 [facility] (Lab), [address], [place], [address], 09/30/2024 04:02:24 pap, IG + HR HPV - HPV regardles s but if HPV is positive need subtyping 16,18/45 add STI testing to pap GC/CT/Tri ch 2024 025 [facility] (Lab), [address], [place], [address], 09/18/2024 17:58:03 culture, urine 2024 025 [facility] (Lab), [address], [place], [address], 09/18/2024 17:58:04 urinalysi s, dipstick 2024 [address], [address], [address], [place], [address], 09/16/2024 14:04:11 dhea-sulf ate, serum 2024 025 [facility] (Lab), [address], [place], [address], 10/14/2024 04:04:41 hormone panel, serum or plasma 2024 025 [facility] (Lab), [address] , [place], [address], 10/14/2024 04:04:41 progester one, serum 2024 025 [facility] (Lab), [address] [place], [address], 10/14/2024 04:04:41 prolactin , serum 2024 025 [facility] (Lab), [address] [place], [address], 10/14/2024 04:04:41 shbg (sex hormone-b inding globulin) , serum 2024 025 [facility] (Lab), [address], [place], [address], 10/14/2024 04:04:42 TSH, serum or plasma 2024 025 [facility] (Lab), [address] [place], [address], 10/14/2024 04:04:42 testoster one free/test osterone total, ratio, serum 2024 025 [facility] (Lab), [address] [place], [address], 10/14/2024 04:04:42 Referral pelvic floor therapy referral 2024 025 [email or web address], [address] [place] [address] , [place], [address], 09/30/2024 04:02:25 Procedures None recorded. Surgeries hysterosc opy, with endometri al ablation (SURG) 2024 025 [id number] [facility], [address], [place], [address], 10/28/2024 09:33:40 Imaging US, pelvis [address], [address], [place], [address], 10/08/2024 21:37:50 US, transvagi nal [address], [address], [place], [address], 10/08/2024 21:37:50 US, pelvis, complete 2024 025 [facility], [address], [address], [place], [address], 09/25/2024 04:11:44 Medication Orders valacyclo vir 1 gram tablet 2024 025 [facility], [address], [place], [address], 10/25/2024 17:20:48 Patient TargetsNo targets recorded. Patient InstructionsNo instructions recorded. Reason for Referral Pelvic Floor Therapy Referra l for Increased frequency of urination Referring Physician: Maryanne Beauchamp, SIGN LANGUAGE INTERPRETER, Encounter Date: 09/16/2024 Results Created Date Observation Date Name Description Value Unit Range Abnormal Flag Note LastModifiedBy Organization Detail LastModifiedTime 07/07/1907/07/2022 CBCWD IFF / COMPR EHENS SAAD METAB OLIC PANEL sodium 143 mmol/ L 133-14 6 Not Available [facility] (Lab) [address], [place], [address], 07/08/2022 06:15:19 07/07/19 23 07/07/2022 CBCWD IFF / COMPR EHENS SAAD METAB OLIC PANEL potassium 4.3 mmol/ L 3.5-5. 1 Not Available [facility] (Lab) [address], [place], [address], 07/08/2022 06:15:19 07/07/19 23 07/07/2022 CBCWD IFF / COMPR EHENS SAAD METAB OLIC PANEL chloride 106 mmol/ L 98-107 Not Available [facility] (Lab) [address], [place], [address], 07/08/2022 06:15:19 07/07/19 23 07/07/2022 CBCWD IFF / COMPR EHENS SAAD METAB OLIC PANEL carbon dioxide 30 mmol/ L 21-31 Not Available [facility] (Lab) [address], [place], [address], 07/08/2022 06:15:19 07/07/19 23 07/07/2022 CBCWD IFF / COMPR EHENS SAAD METAB OLIC PANEL anion gap 7 mmol/ L 4-13 Not Available [facility] (Lab) [address], [place], [address], 07/08/2022 06:15:19 07/07/19 23 07/07/2022 CBCWD IFF / COMPR EHENS SAAD METAB OLIC PANEL blood urea nitrogen 12 mg/dL 7-25 Not Available [facility] (Lab) [address], [place], [address], 07/08/2022 06:15:19 07/07/19 23 07/07/2022 CBCWD IFF / COMPR EHENS SAAD METAB OLIC PANEL creatinine 0.96 mg/dL 0.60-1 .30 Not Available [facility] (Lab) [address], [place], [address], 07/08/2022 06:15:19 07/07/19 23 07/07/2022 CBCWD IFF / COMPR EHENS SAAD METAB OLIC PANEL egfrcr (CKD-epi 2020) 79 mL/mi n/1.7 3_m2 >=60 Not Available [facility] (Lab) [address], [place], [address], 07/08/2022 06:15:19 07/07/19 23 07/07/2022 CBCWD IFF / COMPR EHENS SAAD METAB OLIC PANEL calcium 9.3 mg/dL 8.3-10 .5 Not Available [facility] (Lab) [address], [place], [address], 07/08/2022 06:15:19 07/07/19 23 07/07/2022 CBCWD IFF / COMPR EHENS SAAD METAB OLIC PANEL glucose 70 mg/dL 70-100 Not Available [facility] (Lab) [address], [place], [address], 07/08/2022 06:15:19 07/07/19 23 07/07/2022 CBCWD IFF / COMPR EHENS SAAD METAB OLIC PANEL protein, total 6.6 g/dL 6.4-8. 3 Not Available [facility] (Lab) [address], [place], [address], 07/08/2022 06:15:19 07/07/19 23 07/07/2022 CBCWD IFF / COMPR EHENS SAAD METAB OLIC PANEL albumin 4.1 g/dL 3.5-5. 0 Not Available [facility] (Lab) [address], [place], [address], 07/08/2022 06:15:19 07/07/19 23 07/07/2022 CBCWD IFF / COMPR EHENS SAAD METAB OLIC PANEL ALT 7 units /L 9-43 low Not Available [facility] (Lab) [address], [place], [address], 07/08/2022 06:15:19 07/07/19 23 07/07/2022 CBCWD IFF / COMPR EHENS SAAD METAB OLIC PANEL alkaline phosphatase 48 units /L 34-104 Not Available [facility] (Lab) [address], [place], [address], 07/08/2022 06:15:19 07/07/19 23 07/07/2022 CBCWD IFF / COMPR EHENS SAAD METAB OLIC PANEL AST 11 units /L 13-39 low Not Available [facility] (Lab) [address], [place], [address], 07/08/2022 06:15:19 07/07/19 23 07/07/2022 CBCWD IFF / COMPR EHENS SAAD METAB OLIC PANEL bilirubin, total 0.3 mg/dL 0.2-1. 2 Not Available [facility] (Lab) [address], [place], [address], 07/08/2022 06:15:19 07/07/19 23 07/07/2022 CBCWD IFF / COMPR EHENS SAAD METAB OLIC PANEL WBC 6.4 10'3/ uL 3.6-10 .2 Not Available [facility] (Lab) [address], [place], [address], 07/08/2022 06:15:19 07/07/19 23 07/07/2022 CBCWD IFF / COMPR EHENS SAAD METAB OLIC PANEL RBC 3.75 10'6/ uL (based on docume nted legal sex) 4.10-5 .30 low Not Available [facility] (Lab) [address], [place], [address], 07/08/2022 06:15:19 07/07/19 23 07/07/2022 CBCWD IFF / COMPR EHENS SAAD METAB OLIC PANEL HGB 11.2 g/dL (based on docume nted legal sex) 11.9-1 5.8 low Not Available [facility] (Lab) [address], [place], [address], 07/08/2022 06:15:19 07/07/19 23 07/07/2022 CBCWD IFF / COMPR EHENS SAAD METAB OLIC PANEL HCT 34.9 % (based on docume nted legal sex) 37.4-4 8.3 low Not Available [facility] (Lab) [address], [place], [address], 07/08/2022 06:15:19 07/07/19 23 07/07/2022 CBCWD IFF / COMPR EHENS SAAD METAB OLIC PANEL MCV 93.1 fL 82.0-9 9.0 Not Available [facility] (Lab) [address], [place], [address], 07/08/2022 06:15:19 07/07/19 23 07/07/2022 CBCWD IFF / COMPR EHENS SAAD METAB OLIC PANEL MCH 29.9 pg 27.0-3 3.0 Not Available [facility] (Lab) [address], [place], [address], 07/08/2022 06:15:19 07/07/19 23 07/07/2022 CBCWD IFF / COMPR EHENS SAAD METAB OLIC PANEL MCHC 32.1 g/dL 32.0-3 6.0 Not Available [facility] (Lab) [address], [place], [address], 07/08/2022 06:15:19 07/07/19 23 07/07/2022 CBCWD IFF / COMPR EHENS SAAD METAB OLIC PANEL RDW 14.6 % 11.0-1 5.0 Not Available [facility] (Lab) [address], [place], [address], 07/08/2022 06:15:19 07/07/19 23 07/07/2022 CBCWD IFF / COMPR EHENS SAAD METAB OLIC PANEL plt 205 10'3/ uL 150-45 0 Not Available [facility] (Lab) [address], [place], [address], 07/08/2022 06:15:19 07/07/19 23 07/07/2022 CBCWD IFF / COMPR EHENS SAAD METAB OLIC PANEL MPV 11.7 fL 9.8-12 .7 Not Available [facility] (Lab) [address], [place], [address], 07/08/2022 06:15:19 07/07/19 23 07/07/2022 CBCWD IFF / COMPR EHENS SAAD METAB OLIC PANEL NRBC's 0.0 % 0 Not Available [facility] (Lab) [address], [place], [address], 07/08/2022 06:15:19 07/07/19 23 07/07/2022 CBCWD IFF / COMPR EHENS SAAD METAB OLIC PANEL absolute NRBCs 0.0 10'3/ uL 0 Not Available [facility] (Lab) [address], [place], [address], 07/08/2022 06:15:19 07/07/19 23 07/07/2022 CBCWD IFF / COMPR EHENS SAAD METAB OLIC PANEL neutrophils 66.1 % 37.0-7 2.0 Not Available [facility] (Lab) [address], [place], [address], 07/08/2022 06:15:19 07/07/19 23 07/07/2022 CBCWD IFF / COMPR EHENS SAAD METAB OLIC PANEL lymphocytes 20.5 % 16.0-4 8.0 Not Available [facility] (Lab) [address], [place], [address], 07/08/2022 06:15:19 07/07/19 23 07/07/2022 CBCWD IFF / COMPR EHENS SAAD METAB OLIC PANEL monocytes 8.7 % 4.0-14 .0 Not Available [facility] (Lab) [address], [place], [address], 07/08/2022 06:15:19 07/07/19 23 07/07/2022 CBCWD IFF / COMPR EHENS SAAD METAB OLIC PANEL eosinophils 3.8 % 0.0-9. 0 Not Available [facility] (Lab) [address], [place], [address], 07/08/2022 06:15:19 07/07/19 23 07/07/2022 CBCWD IFF / COMPR EHENS SAAD METAB OLIC PANEL basophils 0.6 % 0.0-2. 0 Not Available [facility] (Lab) [address], [place], [address], 07/08/2022 06:15:19 07/07/19 23 07/07/2022 CBCWD IFF / COMPR EHENS SAAD METAB OLIC PANEL immature granulocytes 0.3 % no define d refere nce range Not Available [facility] (Lab) [address], [place], [address], 07/08/2022 06:15:19 07/07/19 23 07/07/2022 CBCWD IFF / COMPR EHENS SAAD METAB OLIC PANEL absolute neutrophils 4.2 10'3/ uL 1.1-6. 0 Not Available [facility] (Lab) [address], [place], [address], 07/08/2022 06:15:19 07/07/19 23 07/07/2022 CBCWD IFF / COMPR EHENS SAAD METAB OLIC PANEL absolute lymphocytes 1.3 10'3/ uL 0.7-3. 4 Not Available [facility] (Lab) [address], [place], [address], 07/08/2022 06:15:19 07/07/19 23 07/07/2022 CBCWD IFF / COMPR EHENS SAAD METAB OLIC PANEL absolute monocytes 0.6 10'3/ uL 0.3-1. 0 Not Available [facility] (Lab) [address], [place], [address], 07/08/2022 06:15:19 07/07/19 23 07/07/2022 CBCWD IFF / COMPR EHENS SAAD METAB OLIC PANEL absolute eosinophils 0.2 10'3/ uL 0.0-0. 6 Not Available [facility] (Lab) [address], [place], [address], 07/08/2022 06:15:19 07/07/19 23 07/07/2022 CBCWD IFF / COMPR EHENS SAAD METAB OLIC PANEL absolute basophils 0.0 10'3/ uL 0.0-0. 1 Not Available [facility] (Lab) [address], [place], [address], 07/08/2022 06:15:19 07/07/19 23 07/07/2022 CBCWD IFF / COMPR EHENS SAAD METAB OLIC PANEL absolute immature granulocytes 0.0 10'3/ uL 0.00-0 .10 2022 4:37 AM: P indic ates parti al resul ts on a panel have been relea sed. Addit ional resul ts will follo w. 2022 4:37 AM: This resul t has been final verif ied. No addit ional or rader ed resul ts are expec jennifer. Not Available [facility] (Lab) [address], [place], [address], 07/08/2022 06:15:19 07/07/19 23 07/07/2022 T4 FREE T4, free 0.48 NG/dL 0.60-1 .40 low Not Available [facility] (Lab) [address], [place], [address], 07/08/2022 06:15:19 07/07/1907/07/2022 TSH, REFLE X FREE T4 TSH 13.98 uIU/m L 0.30-5 .33 high Not Available [facility] (Lab) [address], [place], [address], 07/08/2022 06:15:20 09/17/19 25 09/16/2024 IMAGE GUIDE D PAP AND HPV REGAR DLESS image guided Pap, HPV regardless of Pap result SEE RESULT S BELOW CASE REPOR T: Cytol ogy Gynec ologi tarik Repor t Case: [id number] Autho nidhi turner Provi belinda: Maryanne Beauchamp NP Colle cted: 09/16 1309 Order ing Locat ion: [place] Patho pete Dia faustino: 09/17 1122 First Tressa n: Danae Lacy, CT Speci men: Tressa pan Pap - Image d, Cervi x STATE MENT OF ADEQU ACY: Satis facto ry for evalu ation Trans forma tion zone compo nent prese nt ----- ----- ----- ----- ----- ----- ----- ----- ----- ----- ----- ----- ----- ----- ----- ----- ----- ---- FINAL DIAGN OSIS: Negat saad for Intra epith elial Lessimeon rosario or Yung heart (NIL) . Shift in gabino sugge stive of bacte rial vagin osis. Elect munir rodriguez d by Danae Lacy, CT on 2024 at 1654 CDT ----- ----- ----- ----- ----- ----- ----- ----- ----- ----- ----- ----- ----- ----- ----- ----- ----- ---- HPV RESUL TS: HPV mRNA E6/E7 : No HPV mRNA Detec jennifer NOTE: This high risk HPV mRNA assay detec ts fourt een high- risk HPV types (16, 18, 31, 33, 35, 39, 45, 51, 52, 56, 58, 59, 66, 68) witho ut diffe renti ation . COMME NT: This speci men was revie wed by a Cytot echno logis t and/o r Patho logis t (as indic ated in this repor t) after evalu ation using the Thinp rep Imagi ng Syste m. CLINI TARIK INFOR MATIO N: Menst rual Statu s: LMP (if appli cable ): Clini tarik Histo ry/Pr eviou s Pap: Type of Neopl gauri (if appli cable ): Signi fican t Clini tarik Findi ngs: Other Histo ry: Hormo jayme (if appli cable ): PAP EDUCA JASMIN L NOTE: The Pap Test is a scree viviane test with an inher ent false negat saad rate. Liqui d-bas ed sampl ing may decre ase, but will not elimi sharla, false negat saad resul ts. A negat saad resul t does not precl ude the prese nce and/o r devel opmen t of disea se, since the prese nce of abnor mal cells in the sampl e depen ds on the locat ion of the lesio n and sampl ing techn ique. Elyse nued regul ar scree viviane is the best metho d of cance r preve ntion . If repor jennifer cytol ogic findi ng do not corre late with physi tarik and/o r histo rical findi ngs, furth er inves tigat ion is recom quang d, as clini amy warra nted. Not Available [facility] (Lab) [address] , [place], [address], 09/18/2024 17:58:03 09/17/1909/16/2024 CULTU RE: URINE result report SEE RESULT S BELOW Test: Cultu re: Urine Speci men Sourc e: Urine - Clean Catch Speci men Type: Urine Speci men Date: 2024 1309 Resul t Date: 2024 2131 Resul t Statu s: Final resul t Abnor mal: No Resul ting Lab: [facility] [address] [facility] [address] Tel: CULTU RE ----- ----- ----- --- No growt h in 1 day (dete ction level of 10,00 0 colon ies / ml.) Not Available [facility] (Lab) [address] , [place], [address], 09/18/2024 17:58:04 09/17/19 25 09/16/2024 urina lysis , dipst ick Leukocytes Trace Not Available [facility] [address], [place], [address], 09/16/2024 14:02:41 09/17/19 25 09/16/2024 urina lysis , dipst ick Nitrite + Not Available [facility] [address], [place], [address], 09/16/2024 14:02:41 09/17/19 25 09/16/2024 urina lysis , dipst ick Urobilinogen Normal Not Available [facility] darius [address], [place], [address], 09/16/2024 14:02:41 09/17/19 25 09/16/2024 urina lysis , dipst ick Protein - Not Available [facility] [address], [place], [address], 09/16/2024 14:02:41 09/17/19 25 09/16/2024 urina lysis , dipst ick pH 5 Not Available [facility] [address], [place], [address], 09/16/2024 14:02:41 09/17/19 25 09/16/2024 urina lysis , dipst ick Specific [place] 1.015 Not Available [facility] angely [address], [place], [address], 09/16/2024 14:02:41 09/17/19 25 09/16/2024 urina lysis , dipst ick Ketone - Not Available [facility] [address], [place], [address], 09/16/2024 14:02:41 09/17/19 25 09/16/2024 urina lysis , dipst ick Bilirubin - Not Available [facility] [address], [place], [address], 09/16/2024 14:02:41 09/17/19 25 09/16/2024 urina lysis , dipst ick Glucose Normal Not Available [facility] [address], [place], [address], 09/16/2024 14:02:41 09/17/19 25 09/16/2024 urina lysis , dipst ick Appearance Clear Not Available [facility] [address], [place], [address], 09/16/2024 14:02:41 09/17/19 25 09/16/2024 urina lysis , dipst ick Color Yellow Not Available [facility] [address], [place], [address], 09/16/2024 14:02:41 10/09/19 25 10/08/2024 US, pelvi s No observ ation record ed. [email or web address] [facility] [address], [place], [address], 10/08/2024 16:26:38 10/09/19 25 10/08/2024 US, trans vagin al No observ ation record ed. [email or web address] [facility] [address], [place], [address], 10/08/2024 16:26:49 10/09/19 25 10/08/2024 US, pelvi s No observ ation record ed. [email or web address] [address], [place], [address], 10/09/2024 14:15:43 Result Notes None recorded. Problems Name Problem SNOMED Code Status Onset Date Resolution Date Notes Provider Name and Address Organization Details Recorded Time Normal pregnanc y in multigra rashawn [id number] 4106 Completed 201706/16/2021 Encounte r for supervis ion of other normal pregnanc y, 2nd trimeste r;Record ed Elsewher e: No Locat ion: [facility]lier l[facility] S ource: EHR Clarifying Plant Operator ian: N Practi ce ID: [id number] Derrick lable Time: 04:00:00 PM Faviola mcknight [facility] 2 15:57:37 Hypergly cemic disorder in pregnanc y [id number] Completed 201806/16/2021 Endo, nutritio nal and metab diseases comp preg, second tri;Eric rded Elsewher e: No [facility] S ource: EHR Clarifying Plant Operator ian: N Practi ce ID: [id number] Derrick lable Time: 10:30:00 AM Faviola mcknight, [facility] 2 15:57:29 Educatio n Completed 201806/16/2021 Encounte r for other general counseli ng and advice on contrace ption;Re corded Elsewher e: No Locat ion: [facility]lier lopez [facility] S ource: EHR Clarifying Plant Operator ian: N Practi ce ID: [id number] Derrick lable Time: 11:45:00 AM Faviola mcknight, [facility] 2 15:57:10 Gestatio n period, 38 weeks [id number] Completed 201806/16/2021 38 weeks gestatio n of pregnanc y;Record ed Elsewher e: No Locat ion: Elier lopez [facility] S ource: EHR Clarifying Plant Operator ian: N Practi ce ID: [id number] Derrick lable Time: 10:30:00 AM Faviola mcknight [facility] 2 15:57:22 Urinary tract infectio us disease [id number] Completed 201806/16/2021 Urinary tract infectio n, site not specifie d;Record ed Elsewher e: No [facility] S ource: EHR Clarifying Plant Operator ian: N Practi ce ID: [id number] Derrick lable Time: 01:30:00 PM Faviola mcknight, [facility] 2 15:57:48 Rubella screenin g status [id number] Completed 201706/16/2021 Encounte r for antenata l screenin g, unspecif ied;Eric rded Elsewher e: No Locat ion: [facility] S ource: EHR Clarifying Plant Operator ian: N Ute ce ID: [id number] Derrick lable Time: 02:15:00 PM Faviola mcknight, [facility] 2 15:57:42 False labor before 37 complete d weeks of gestatio n [id number] Completed 201806/16/2021 False labor before 37 complete d weeks of gest, third tri;Eric rded Elsewher e: No Locat ion: [facility] S ource: EHR Clarifying Plant Operator ian: N Ute ce ID: [id number] Derrick lable Time: 03:00:00 PM Faviola Mayfield [facility] 2 15:57:15 Emotiona l state finding Completed 201806/16/2021 Anxiety depressi on;Recor ded Elsewher e: No Locat ion: [facility] S ource: EHR Clarifying Plant Operator ian: N Ute ce ID: [id number] Derrick lable Time: 11:45:00 AM [facility] 15:57:13 Antenata l screenin g Completed 201706/16/2021 Encounte r for antenata l screenin g for nuchal transluc ency;Rec orded Elsewher e: No Locat ion: [facility] S ource: EHR Clarifying Plant Operator ian: N Ute ce ID: [id number] Derrick lable Time: 01:45:00 PM Faviola mcknight, [facility] 2 15:57:05 Infectio n screenin g Completed 201706/16/2021 Encounte r for screenin g for oth infec/pa rastc diseases ;Recorde d Elsewher e: No Locat ion: Elier lopez [facility] S ource: EHR Clarifying Plant Operator ian: N Practi ce ID: [id number] Derrick lable Time: 03:30:00 PM Faviola mcknight, [facility] 2 15:57:33 Gestatio n period, 37 weeks [id number] Completed 201806/16/2021 37 weeks gestatio n of pregnanc y;Record ed Elsewher e: No Locat ion: [facility] jessica [facility] S ource: EHR Clarifying Plant Operator ian: N Practi ce ID: [id number] Derrick lable Time: 10:45:00 AM Faviola [place] roxanna, [facility] 2 15:57:19 Gestatio n period, 31 weeks [id number] Completed 201806/16/2021 31 weeks gestatio n of pregnanc y;Record ed Elsewher e: No Locat ion: [facility]lier l[facility] S ource: EHR Clarifying Plant Operator ian: N Practi ce ID: [id number] Derrick lable Time: 03:00:00 PM Faviola [place] roxanna [facility] 2 15:57:18 Antenata l screenin g for malforma tion Completed 201706/16/2021 Encounte r for antenata l screenin g for malforma tions;Re corded Elsewher e: No Locat ion: [facility]lier l[facility] S ource: EHR Clarifying Plant Operator ian: N Practi ce ID: 0001 Derrick lable Time: 03:00:00 PM Faviola mcknight [facility] 2 15:57:07 Lochia finding Completed 201806/16/2021 Encounte r for routine postpart um follow-u p;Record ed Elsewher e: No [facility] S ource: EHR Clarifying Plant Operator ian: N Practi ce ID: 0001 Derrick lable Time: 11:45:00 AM Faviola Mayfield [facility], [facility] [address] 15:57:[address] Concept Completed 201706/16/2021 Encntr for devulcanizer operator exam (general ) (routine ) w/o abn findings ;Recorde d Elsewher e: No Locat ion: [facility] S ource: EHR Clarifying Plant Operator ian: N Practi ce ID: 0001 Derrick lable Time: 03:30:00 PM Faviola Mayfield [facility], [facility] 2 15:57:46 Pregnanc y detectio n examinat ion Completed 201706/16/2021 Encounte r for pregnanc y test, result positive ;Recorde d Elsewher e: No Locat ion: [facility] S ource: EHR Clarifying Plant Operator ian: N Practi ce ID: 0001 Derrick lable Time: 03:30:00 PM Faviola [place] [facility], [facility] 2 15:57:39 Group B streptoc occus infectio n in mother complica ting childbir th [id number] Completed 201806/16/2021 Streptoc occus B carrier state complica ting childbir th;Pract ice ID: 0001 Faviola Mayfield [facility], [facility] 2 15:57:25 Single live from singleto n pregnanc y [id number] Completed 201806/16/2021 Single live ;Pr actice ID: 0001 Faviola Parratz [facility], [facility] 2 15:57:44 Pregnanc y [id number] Completed 202101/18/2022 Swetha Mtz [facility], [facility] 2 12:58:32 History of malignan t neoplasm of thyroid 141038734 Completed s/p thyroide ctomy - Pt on 250mcg/d ay. MFM 08/11 for u/s and consult - MFM recommen dations: ASA 162mg, Early 1hr gtt, Rpt CL U/S at 19wks, 21w U/S to complete anatomy, serial growth, & wkly antenata l testing @32wks. Swetha Mtz hl null, [facility] 2 12:58:23 Migraine with aura 3771299 Active 2021 Swetha Berriostie hl null, [facility] 2 12:58:23 Migraine with aura 3583960 Completed 2021 Swetha Berriostie hl null, [facility] 2 12:58:23 Cholesta sis 12789184 Completed ursodiol 500mg bid as of 11/08 antenata l testing- Repeat bile acids weekly Swetha Berriostie hl null, [facility] 2 12:58:23 RhD negative 462934663 Completed Rhogam given 11/02/21 Swetha Mendozanstie hl null, [facility] 2 12:58:23 RhD negative 937591356 Active Rhogam given 11/02/21 Swetha Berriostie hl null, [facility] 2 12:58:23 Cholesta sis 43711586 Active ursodiol 500mg bid as of 11/08 antenata l testing- Repeat bile acids weekly Swetha Berriostie hl null, [facility] 2 12:58:23 History of malignan t neoplasm of thyroid 579104999 Active s/p thyroide ctomy - Pt on 250mcg/d ay. MFM 08/11 for u/s and consult - M recommen dations: ASA 162mg, Early 1hr gtt, Rpt CL U/S at 19wks, 21w U/S to complete anatomy, serial growth, & wkly antenata l testing @32wks. Swetha Mtz [facility] 2 12:58:23 Notes:hypothyroidism - Problem Notes None recorded. Procedures Surgical History Date Name Laterality Status Provider Name and Address Organization Details Recorded Time 09/17/19 25 Date of Last Pap Smear completed Vanesa Camacho [facility] 10/25/2024 16:46:35 06/29/19 23 SALPINGECTOMY, LAPAROSCOPIC (SURG) completed Sharon George [facility] 06/30/2022 10:23:12 05/22/19 17 extraction of wisdom tooth completed [facility] 06/16/2021 16:05:38 05/22/19 07 Ectopic completed [facility] 06/16/2021 16:05:51 03/22/20 03 thyroidectomy completed [facility] 06/16/2021 16:05:29 05/22/18 91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 and pelvic u/s orderedbri efly discussed management options pending results Venereal d isease screening 327965757 Z11.3 Sexually t ransmitted infectious disease 5805482 A64 Increased frequency of urination 655063639 R35.0 UA/cx donePFPT recreferra l placed Time spent in visit is a total of 35 mins with at least 50% of visit consisting of counseling and review of plan of care. [id number] Peterson Jefferson MD [facility] [address],[place] [address] 10/08/2024 15:29:33 10/08/2024 16:17:16 Abnormal uterine bleeding 0843357483 9100 N93.9 N94.6 [id number] Peterson Jefferson MD [facility] [address],[place] [address] 10/25/2024 15:27:55 10/28/2024 08:57:20 Herpetic vulvovaginitis 72034920 A60.04 Menorrhagia 297101745 N9 2.0 This patient is a 39-year-ol d female presents for heavy vaginal bleeding. She has longstandi ng very heavy bleeding. Her menses are regular. However, they require double protection . Patient has accidents, getting blood on her bedding and clothing. Is affected work. She changes a pad or tampon every hour. She leaks blood around the pad and tampon. This bleeding has a profound impact on her quality of life and her activities of daily living. we discussed treatment options in detail. I spent over 30 minutes on the patient's care in total. Ultimately we agreed to endometria l ablation. I explained the procedure with the patient in great detail. She understand s procedure would like to proceed. Health Concerns Section Related Observation LastModified by Organization Detai ls LastModified Time None Recorded Concern Status LastModified by Organization Details LastModified Time None Recorded Advance Directives Directive None Recorded Payers Insurance Date Sequence Insurance Name Policy Number Policy Terry Covered Member ID Terry Member ID Guarantor Name 11/23/2024 1 [facility] (MEDICAID HMO) [id number] Olena Boone [id number] Olena Boone Notes Date Note Type Note Provider Name and Address Organization Details Recorded Time 07/07/2022 text/html this patient is 37-year-old female presents for follow-up on laparoscopic salpingectomy. She is recovering normally. Her incisions are clean dry and intact. Her hernia near the umbilicus continues to hurt. She has a date to see General surgery. She will follow-up here as needed Peterson Jefferson MD [address], [place], [address], [facility] 07/07/2022 15:46:17 09/16/2024 text/html Annual GYNReport ed bypatient.Menstrual cycle:Severe dysmenorrhea;Menorrh agia;Bleeding lasts more than 7 days Urinary symptoms:No hematuria; No incontinence;Increas ed urinary frequency Vulva:No genital lesion Vagina:Normal vaginal discharge Breast:No breast pain; No breast lump; No nipple discharge Current Contraception:Satisf ied with current contraception; Tubal ligation Sexual complaints:No sexual complaints; No pain during intercourse; Normal libido Menopausal Symptoms:No menopausal symptoms; Normal vaginal lubrication Psychological symptoms:No depression; No anxiety; No PMDD Preventive measures:Encourage self breast examination; Encourage regular exercise; Encourage no tobacco use; Encourage regular mammograms starting age 41Notes:39yo wweBC - BSlast pap 2021 - wnlperiods heavy/painful for the past 3 yrsmonthly periods, lasting 8 + days, changing pad and tampons every hour when heavy, significant crampingurinary frequency, neg dysuriawould like STI testing today YADY Chavez [address], [place], [address], [facility] 09/16/2024 14:58:11 10/25/2024 text/html This patient is a 39-year-old female presents for heavy vaginal bleeding. She has longstanding very heavy bleeding. Her menses are regular. However, they require double protection. Patient has accidents, getting blood on her bedding and clothing. Is affected work. She changes a pad or tampon every hour. She leaks blood around the pad and tampon. This bleeding has a profound impact on her quality of life and her activities of daily living. we discussed treatment options in detail. I spent over 30 minutes on the patient's care in total. Ultimately we agreed to endometrial ablation. I explained the procedure with the patient in great detail. She understands procedure would like to proceed. Peterson Jefferson MD [address], [place], [address], [facility] 10/27/2024 21:51:31 OBGyn Episode Ob Episode Information Episode Created Date Number of Fetuses Patient Bloodtype Patient rh Status Prepregnancy Weight lbs Domestic Partner Domestic Partner Phone Father Name Pest Control Technician Status 06/16/19 22 1 CLOSED Fetus Data First Name Last Name Admitted to NICU Weight (g) Sex Living Outcome Pediatric Complications Fetus ID Race Codes Race Delivery Type 453.592 M Demise [id number] Lance Calculation Initial Lance Date Initial Exam Date Initial Exam Provider Initial Ultrasound Date Last Menstrual Period Date Ultra Sound Weeks Gestation 0 Eighteen To Twenty Week Lance Update Ultra Sound Date Fundal Height At Umbil Quickening Date Ultra Sound Latest Weeks Gestation Final Lance Confirmed By Final Lance Confirmed Date Final Lance Date Ultra Sound Latest Days Gestation 0 0 Menstrual History Last Menstrual Date Menses Monthly On Bcp Conception Prior Menses Frequency Hcg Plus Date Menarche Onset Age Delivery Information Delivery Date Delivery Type Labor Anesthesia Weeks Gestation Incision Type Labor Labor Length Hrs Delivered By Post Complications Tubal Sterilization Discharge Date Comments 4 24 true Discharge Information Feeding Method Contraceptive Method Maternal HG B and HCT Levels Ob Episode Information Episode Created Date Number of Fetuses Patient Bloodtype Patient rh Status Prepregnancy Weight lbs Domestic Partner Domestic Partner Phone Father Name Pest Control Technician Status 07/07/19 22 1 CLOSED Fetus Data First Name Last Name Admitted to NICU Weight (g) Sex Living Outcome Pediatric Complications Fetus ID Race Codes Race Delivery Type , Spontane ous [id number] Lance Calculation Initial Lance Date Initial Exam Date Initial Exam Provider Initial Ultrasound Date Last Menstrual Period Date Ultra Sound Weeks Gestation 0 Eighteen To Twenty Week Lance Update Ultra Sound Date Fundal Height At Umbil Quickening Date Ultra Sound Latest Weeks Gestation Final Lance Confirmed By Final Lance Confirmed Date Final Lance Date Ultra Sound Latest Days Gestation 0 0 Menstrual History Last Menstrual Date Menses Monthly On Bcp Conception Prior Menses Frequency Hcg Plus Date Menarche Onset Age Delivery Information Delivery Date Delivery Type Labor Anesthesia Weeks Gestation Incision Type Labor Labor Length Hrs Delivered By Post Complications Tubal Sterilization Discharge Date Comments 4 Discharge Information Feeding Method Contraceptive Method Maternal HG B and HCT Levels Ob Episode Information Episode Created Date Number of Fetuses Patient Bloodtype Patient rh Status Prepregnancy Weight lbs Domestic Partner Domestic Partner Phone Father Name Pest Control Technician Status 07/07/19 22 1 A Negative 228 CLOSED Fetus Data First Name Last Name Admitted to NICU Weight (g) Sex Living Outcome Pediatric Complications Fetus ID Race Codes Race Delivery Type 2579.80 45 M true Full Term [id number] Vaginal Delivery Problems Problem Notes NIPT NL/ AFP NL/16 - TSH 45 .59 / T4 0.47Per MFM, wkly CL with MWC until 24wks. 09/08/21 MFM appts cancelled. MK, RNEarly 1hr gtt - 85, Rpt 1hr - 120Neg CF 2018 Problem Name Start Date End Date Resolution Snomed Code Not e History of malignant neoplasm of thyroid [id number] s/p thyr oidectomy - Pt on 250mcg/day. MFM 08/11 for u/s and consult - MFM recommendations: ASA 162mg, Early 1hr gtt, Rpt CL U/S at 19wks, 21w U/S to complete anatomy, serial growth, & wkly testing @32wks. Migraine with aura 08/18/2021 [id number] RhD negative [id number] Rhogam given 11/02/21 Cholestasis MEDICATION [id number] ursodio l 500mg bid as of 11/08 testing- Repeat bile acids weekly Lance Calculation Initial Lance Date Initial Exam Date Initial Exam Provider Initial Ultrasound Date Last Menstrual Period Date Ultra Sound Weeks Gestation 01/15/2022 07/07/2021 06/16/2021 9 Eighteen To Twenty Week Lance Update Ultra Sound Date Fundal Height At Umbil Quickening Date Ultra Sound Latest Weeks Gestation Final Lance Confirmed By Final Lance Confirmed Date Final Lance Date Ultra Sound Latest Days Gestation 0 [email or web address] 07/07/2021 01/16/20 22 0 Pre-marvel Flowsheet Flowsheet Date 07/07/2021 Ramirez Score Blood Edema Fundus Height Fundus Units Glucose Ketones Leukocytes Nitrite Labor Signs Protein Cervic Dilation Cervic Effacement Cervic Station 12 Type Weight in lbs Pre/Post Dialysis Refused Weight 234.968189076323 BP Diastolic BP Location Tested BP Systolic BP Type 72 R arm 112 sitting Fetus Heart Rate Present A 145 Fetus Movement Comments this patient is a 36-year-ol d 7 para 3123 at 12 weeks gestation who presents for initial care. She is on vaccinated for COVID. She was given recommendations on COVID vaccination as well as flu shot and Tdap updates. Reviewed care in detail. She is going to have genetic testing And labs drawn today. She has history of 3 vaginal births, one 23 week loss in 2003 in her 1st . She has remote history of thyroid cancer and thyroidectomy. History of ectopic and spontaneous A/B. Flowsheet Date 08/04/2021 Ramirez Score Blood Edema Fundus Height Fundus Units Glucose Ketones Leukocytes Nitrite Labor Signs Protein Cervic Dilation Cervic Effacement Cervic Station neg none trace Type Weight in lbs Pre/Post Dialysis Refused Weight 232.33056978826 BP Diastolic BP Location Tested BP Systolic BP Type 63 98 Fetus Heart Rate Present A 149 Present Fetus Movement A Yes Comments PATIENT STATE THAT HAVING IS SUES CONTROLING BLADDER, NAUSEA AND VOMITING. discussed precautions, ?umbilical hernia on exam today will cont to monitor, small discomfort, no pain, f/u anatomy at [facility], recheck tsh today f/u 4 weeks Flowsheet Date 08/18/2021 Ramirez Score Blood Edema Fundus Height Fundus Units Glucose Ketones Leukocytes Nitrite Labor Signs Protein Cervic Dilation Cervic Effacement Cervic Station 17 Type Weight in lbs Pre/Post Dialysis Refused Weight 230.502037290608 BP Diastolic BP Location Tested BP Systolic BP Type 64 L arm 99 sitting Fetus Heart Rate Present A 156 Fetus Movement Comments this patient is a 36-year-ol d multi Vit 18 weeks gestation who presents for follow-up after an ER visit. She had visual changes and a bernarda paralysis or bernarda paresthesias. This was complicated or confused by a concomitant sciatic nerve symptoms. Patient may not have discussed headache with the ER. She did give a history of headache after being asked. She appears to have migraine with aura. She has phonophobia and photophobia and infrequent headaches that are a frontal, pulsatile headache. To begin a very low dose of verapamil. 90 mg q.d.. May go up from there. Concerned about hypotension. We spent over 35 minutes [id number]-[id number]. We reviewed treatment of sciatica and migraine headache in . Both her complex topics. Flowsheet Date 08/31/2021 Ramirez Score Blood Edema Fundus Height Fundus Units Glucose Ketones Leukocytes Nitrite Labor Signs Protein Cervic Dilation Cervic Effacement Cervic Station Type Weight in lbs Pre/Post Dialysis Refused BP Diastolic BP Location Tested BP Systolic BP Type Fetus Heart Rate Present Fetus Movement Comments Flowsheet Date 08/31/2021 Ramirez Score Blood Edema Fundus Height Fundus Units Glucose Ketones Leukocytes Nitrite Labor Signs Protein Cervic Dilation Cervic Effacement Cervic Station 20 Type Weight in lbs Pre/Post Dialysis Refused Weight 239.900592944437 BP Diastolic BP Location Tested BP Systolic BP Type 66 R arm 116 sitting Fetus Heart Rate Present A 144 Fetus Movement Comments discussed back pain concerns , discussed thyroid. Then repeat thyroid testing today to see if additional thyroid hormones required. Completed normal anatomy, low normal growth, repeat growth in 4 weeks Flowsheet Date 09/07/2021 Ramirez Score Blood Edema Fundus Height Fundus Units Glucose Ketones Leukocytes Nitrite Labor Signs Protein Cervic Dilation Cervic Effacement Cervic Station Type Weight in lbs Pre/Post Dialysis Refused BP Diastolic BP Location Tested BP Systolic BP Type Fetus Heart Rate Present Fetus Movement Comments Flowsheet Date 09/17/2021 Ramirez Score Blood Edema Fundus Height Fundus Units Glucose Ketones Leukocytes Nitrite Labor Signs Protein Cervic Dilation Cervic Effacement Cervic Station Type Weight in lbs Pre/Post Dialysis Refused BP Diastolic BP Location Tested BP Systolic BP Type Fetus Heart Rate Present Fetus Movement Comments Flowsheet Date 09/21/2021 Ramirez Score Blood Edema Fundus Height Fundus Units Glucose Ketones Leukocytes Nitrite Labor Signs Protein Cervic Dilation Cervic Effacement Cervic Station Type Weight in lbs Pre/Post Dialysis Refused BP Diastolic BP Location Tested BP Systolic BP Type Fetus Heart Rate Present Fetus Movement Comments Flowsheet Date 09/28/2021 Ramirez Score Blood Edema Fundus Height Fundus Units Glucose Ketones Leukocytes Nitrite Labor Signs Protein Cervic Dilation Cervic Effacement Cervic Station Type Weight in lbs Pre/Post Dialysis Refused BP Diastolic BP Location Tested BP Systolic BP Type Fetus Heart Rate Present Fetus Movement Comments Flowsheet Date 10/04/2021 Ramirez Score Blood Edema Fundus Height Fundus Units Glucose Ketones Leukocytes Nitrite Labor Signs Protein Cervic Dilation Cervic Effacement Cervic Station neg trace 26 none trace Type Weight in lbs Pre/Post Dialysis Refused Weight 235.112120614969 BP Diastolic BP Location Tested BP Systolic BP Type 70 104 Fetus Heart Rate Present A 140 Fetus Movement A Yes Comments Headaches improved with vera pimil but have slowly started to get worse again. Will discuss increase in dose with Dr Jefferson.Pt also c/o increase itching throughout body. Will check bile acids and cmp today along with routine tsh. Pt will also increase water intake. Otherwise doing well. Flowsheet Date 11/03/2021 Ramirez Score Blood Edema Fundus Height Fundus Units Glucose Ketones Leukocytes Nitrite Labor Signs Protein Cervic Dilation Cervic Effacement Cervic Station neg none none trace Type Weight in lbs Pre/Post Dialysis Refused Weight 240.916261270500 BP Diastolic BP Location Tested BP Systolic BP Type 72 122 Fetus Heart Rate Present Fetus Movement A Yes Comments patient is having some nause a. doing well, rpt bile acids drawn not resulted yet, precautions reviewed testing scheduled, itching is under control with ursadiol f/u 2 weeks Flowsheet Date 11/10/2021 Ramirez Score Blood Edema Fundus Height Fundus Units Glucose Ketones Leukocytes Nitrite Labor Signs Protein Cervic Dilation Cervic Effacement Cervic Station 33 Type Weight in lbs Pre/Post Dialysis Refused Weight 240.575268851831 BP Diastolic BP Location Tested BP Systolic BP Type 65 120 Fetus Heart Rate Present A 145 Fetus Movement A Yes Comments nOt doing great. Taking rehana diol 500 ID but still terrible itching Keeping her awake every night and she is so tired Can't stop itching. NSts to start now for cholestasis. Will try low dose prednisone for her severe symptoms. Flowsheet Date 11/10/2021 Ramirez Score Blood Edema Fundus Height Fundus Units Glucose Ketones Leukocytes Nitrite Labor Signs Protein Cervic Dilation Cervic Effacement Cervic Station Type Weight in lbs Pre/Post Dialysis Refused BP Diastolic BP Location Tested BP Systolic BP Type Fetus Heart Rate Present Fetus Movement Comments Flowsheet Date 11/12/2021 Ramirez Score Blood Edema Fundus Height Fundus Units Glucose Ketones Leukocytes Nitrite Labor Signs Protein Cervic Dilation Cervic Effacement Cervic Station Type Weight in lbs Pre/Post Dialysis Refused BP Diastolic BP Location Tested BP Systolic BP Type Fetus Heart Rate Present Fetus Movement Comments Flowsheet Date 11/17/2021 Ramirez Score Blood Edema Fundus Height Fundus Units Glucose Ketones Leukocytes Nitrite Labor Signs Protein Cervic Dilation Cervic Effacement Cervic Station Type Weight in lbs Pre/Post Dialysis Refused BP Diastolic BP Location Tested BP Systolic BP Type Fetus Heart Rate Present Fetus Movement Comments Flowsheet Date 11/17/2021 Ramirez Score Blood Edema Fundus Height Fundus Units Glucose Ketones Leukocytes Nitrite Labor Signs Protein Cervic Dilation Cervic Effacement Cervic Station neg none none trace Type Weight in lbs Pre/Post Dialysis Refused Weight 243.604853750532 BP Diastolic BP Location Tested BP Systolic BP Type 60 96 Fetus Heart Rate Present Fetus Movement A Yes Comments patient is having some nause a and vomiting. Bile acids redraw today, feeling better after ursadiol increase, nst R precautions reviewed ok to call and set up preadmission appt Flowsheet Date 11/19/2021 Ramirez Score Blood Edema Fundus Height Fundus Units Glucose Ketones Leukocytes Nitrite Labor Signs Protein Cervic Dilation Cervic Effacement Cervic Station Type Weight in lbs Pre/Post Dialysis Refused BP Diastolic BP Location Tested BP Systolic BP Type Fetus Heart Rate Present Fetus Movement Comments Flowsheet Date 11/26/2021 Ramirez Score Blood Edema Fundus Height Fundus Units Glucose Ketones Leukocytes Nitrite Labor Signs Protein Cervic Dilation Cervic Effacement Cervic Station Type Weight in lbs Pre/Post Dialysis Refused BP Diastolic BP Location Tested BP Systolic BP Type Fetus Heart Rate Present Fetus Movement Comments Flowsheet Date 11/26/2021 Ramirez Score Blood Edema Fundus Height Fundus Units Glucose Ketones Leukocytes Nitrite Labor Signs Protein Cervic Dilation Cervic Effacement Cervic Station Type Weight in lbs Pre/Post Dialysis Refused BP Diastolic BP Location Tested BP Systolic BP Type Fetus Heart Rate Present Fetus Movement Comments Flowsheet Date 11/26/2021 Ramirez Score Blood Edema Fundus Height Fundus Units Glucose Ketones Leukocytes Nitrite Labor Signs Protein Cervic Dilation Cervic Effacement Cervic Station neg none none trace Type Weight in lbs Pre/Post Dialysis Refused Weight [id number] BP Diastolic BP Location Tested BP Systolic BP Type 65 105 Fetus Heart Rate Present Fetus Movement A Yes Comments nst and us today, baby is tr ansverse, exercises given, recheck tsh and bile acids today f/u one week, precautions reviewed Flowsheet Date 11/30/2021 Ramirez Score Blood Edema Fundus Height Fundus Units Glucose Ketones Leukocytes Nitrite Labor Signs Protein Cervic Dilation Cervic Effacement Cervic Station Type Weight in lbs Pre/Post Dialysis Refused BP Diastolic BP Location Tested BP Systolic BP Type Fetus Heart Rate Present Fetus Movement Comments Flowsheet Date 12/03/2021 Ramirez Score Blood Edema Fundus Height Fundus Units Glucose Ketones Leukocytes Nitrite Labor Signs Protein Cervic Dilation Cervic Effacement Cervic Station Type Weight in lbs Pre/Post Dialysis Refused BP Diastolic BP Location Tested BP Systolic BP Type Fetus Heart Rate Present Fetus Movement Comments Flowsheet Date 12/03/2021 Ramirez Score Blood Edema Fundus Height Fundus Units Glucose Ketones Leukocytes Nitrite Labor Signs Protein Cervic Dilation Cervic Effacement Cervic Station neg trace none trace Type Weight in lbs Pre/Post Dialysis Refused Weight 244.588815190271 BP Diastolic BP Location Tested BP Systolic BP Type 60 104 Fetus Heart Rate Present Fetus Movement A Yes Comments patient states that having s welling, nausea, vomiting, BH contractions and normal discharge. precautions reviewed NST R IOL scheduled for 37 weeks +FM rpt bile acids today Flowsheet Date 12/07/2021 Ramirez Score Blood Edema Fundus Height Fundus Units Glucose Ketones Leukocytes Nitrite Labor Signs Protein Cervic Dilation Cervic Effacement Cervic Station Type Weight in lbs Pre/Post Dialysis Refused Weight 241.58603035658 BP Diastolic BP Location Tested BP Systolic BP Type 68 114 Fetus Heart Rate Present Fetus Movement Comments Flowsheet Date 12/10/2021 Ramirez Score Blood Edema Fundus Height Fundus Units Glucose Ketones Leukocytes Nitrite Labor Signs Protein Cervic Dilation Cervic Effacement Cervic Station Type Weight in lbs Pre/Post Dialysis Refused BP Diastolic BP Location Tested BP Systolic BP Type Fetus Heart Rate Present Fetus Movement Comments Flowsheet Date 12/10/2021 Ramirez Score Blood Edema Fundus Height Fundus Units Glucose Ketones Leukocytes Nitrite Labor Signs Protein Cervic Dilation Cervic Effacement Cervic Station neg none none trace Type Weight in lbs Pre/Post Dialysis Refused Weight 239.354846437096 BP Diastolic BP Location Tested BP Systolic BP Type 72 133 Fetus Heart Rate Present Fetus Movement A Yes Comments patient is having contractio ns, discharge, nausea and vomiting, patient had decreased movement yesterday. went to at [facility] and was given fluids, doing better today, bpp 12/27 precautions reviewed plan delivery at 37 weeks Flowsheet Date 12/10/2021 Ramirez Score Blood Edema Fundus Height Fundus Units Glucose Ketones Leukocytes Nitrite Labor Signs Protein Cervic Dilation Cervic Effacement Cervic Station Type Weight in lbs Pre/Post Dialysis Refused BP Diastolic BP Location Tested BP Systolic BP Type Fetus Heart Rate Present Fetus Movement Comments Flowsheet Date 12/14/2021 Ramirez Score Blood Edema Fundus Height Fundus Units Glucose Ketones Leukocytes Nitrite Labor Signs Protein Cervic Dilation Cervic Effacement Cervic Station Type Weight in lbs Pre/Post Dialysis Refused Weight 239.619423265174 BP Diastolic BP Location Tested BP Systolic BP Type 68 108 Fetus Heart Rate Present Fetus Movement Comments Flowsheet Date 12/21/2021 Ramirez Score Blood Edema Fundus Height Fundus Units Glucose Ketones Leukocytes Nitrite Labor Signs Protein Cervic Dilation Cervic Effacement Cervic Station Type Weight in lbs Pre/Post Dialysis Refused BP Diastolic BP Location Tested BP Systolic BP Type Fetus Heart Rate Present Fetus Movement Comments Flowsheet Date 12/24/2021 Ramirez Score Blood Edema Fundus Height Fundus Units Glucose Ketones Leukocytes Nitrite Labor Signs Protein Cervic Dilation Cervic Effacement Cervic Station Type Weight in lbs Pre/Post Dialysis Refused BP Diastolic BP Location Tested BP Systolic BP Type Fetus Heart Rate Present Fetus Movement Comments Flowsheet Date 12/24/2021 Ramirez Score Blood Edema Fundus Height Fundus Units Glucose Ketones Leukocytes Nitrite Labor Signs Protein Cervic Dilation Cervic Effacement Cervic Station Type Weight in lbs Pre/Post Dialysis Refused BP Diastolic BP Location Tested BP Systolic BP Type Fetus Heart Rate Present Fetus Movement Comments Flowsheet Date 12/24/2021 Ramirez Score Blood Edema Fundus Height Fundus Units Glucose Ketones Leukocytes Nitrite Labor Signs Protein Cervic Dilation Cervic Effacement Cervic Station neg trace none trace Type Weight in lbs Pre/Post Dialysis Refused Weight 249.277241541636 BP Diastolic BP Location Tested BP Systolic BP Type 63 116 Fetus Heart Rate Present Fetus Movement A Yes Comments patient is having some contr actions and swelling. precautions reviewed. IOL tomorrow bpp 12/27 Flowsheet Date 12/30/2021 Ramirez Score Blood Edema Fundus Height Fundus Units Glucose Ketones Leukocytes Nitrite Labor Signs Protein Cervic Dilation Cervic Effacement Cervic Station Type Weight in lbs Pre/Post Dialysis Refused Weight 247.646792481420 BP Diastolic BP Location Tested BP Systolic BP Type 59 L arm 93 standing Fetus Heart Rate Present Fetus Movement Comments Flowsheet Date 12/31/2021 Ramirez Score Blood Edema Fundus Height Fundus Units Glucose Ketones Leukocytes Nitrite Labor Signs Protein Cervic Dilation Cervic Effacement Cervic Station Type Weight in lbs Pre/Post Dialysis Refused Weight 246.654473867003 BP Diastolic BP Location Tested BP Systolic BP Type 68 111 Fetus Heart Rate Present Fetus Movement Comments Menstrual History Last Menstrual Date Menses Monthly On Bcp Conception Prior Menses Frequency Hcg Plus Date Menarche Onset Age Genetic Screening And Infection History Question Response Note Mental Retardation/Autism false Patient's Age Will Be 35 Years Or Older At Estim ated Date of Delivery false Thalassemia (Y[place], Lao, Mediterranean, Or Background): MCV < 80 false Neural Tube Defect (Meningomyelocele, Spina Bifi da, Or Anencephaly) false Congenital Heart Defect false Down Syndrome false Davi-Sachs (eg, Samaritan, [place], [place]) f alse Jamin Disease false Sickle Cell Disease Or Trait () false Hemophilia Or Other Blood Disorders false Muscular Dystrophy false Cystic Fibrosis false [facility] false Intellectual Disability/Autism false If Yes, Was Person Tested For Fragile X? false Other Inherited Genetic Or Chromosomal Disorder false Maternal Metabolic Disorder (eg, Type 1 Diabetes , PKU) false Patient Or Baby's Father Had A Child With Defects Not Listed Above false Recurrent Loss, Or A Stillbirth false Medications (including Suppl ements, Vitamins, Herbs, OTC Drugs), Illicit/Recreational Drugs, Alcohol false If Yes, Agent(s) And Strength/Dosage false Any Other Genetic History false Live With Someone With TB Or Exposed To TB false Patient Or Partner Has History Of Genital Herpes false Rash Or Viral Illness Since Last Menstrual Perio d false History Of STD, Gonorrhea, Chlamydia, HPV, Syphi lis false Other Infection History false History of HIV false History of Hepatitis false Prior GBS-infected child false Hemoglobinopathy Or Carrier false Other Structural Defect false Recent Travel History Outside of Country false Delivery Information Delivery Date Delivery Type Labor Anesthesia Weeks Gestation Incision Type Labor Labor Length Hrs Delivered By Post Complications Tubal Sterilization Discharge Date Comments 2 Induce d [facility] 37 Low Transvers e false Peterson Jefferson MD Hemorrhage cholestas is, malpositi on of fetus & gbs unknown Discharge Information Feeding Method Contraceptive Method Maternal HG B and HCT Levels Ob Episode Information Episode Created Date Number of Fetuses Patient Bloodtype Patient rh Status Prepregnancy Weight lbs Domestic Partner Domestic Partner Phone Father Name Pest Control Technician Status 06/16/19 22 1 DELETED Lance Calculation Initial Lance Date Initial Exam Date Initial Exam Provider Initial Ultrasound Date Last Menstrual Period Date Ultra Sound Weeks Gestation 0 Eighteen To Twenty Week Lance Update Ultra Sound Date Fundal Height At Umbil Quickening Date Ultra Sound Latest Weeks Gestation Final Lance Confirmed By Final Lance Confirmed Date Final Lance Date Ultra Sound Latest Days Gestation 0 0 Menstrual History Last Menstrual Date Menses Monthly On Bcp Conception Prior Menses Frequency Hcg Plus Date Menarche Onset Age Delivery Information Delivery Date Delivery Type Labor Anesthesia Weeks Gestation Incision Type Labor Labor Length Hrs Delivered By Post Complications Tubal Sterilization Discharge Date Comments 9 6 Discharge Information Feeding Method Contraceptive Method Maternal HG B and HCT Levels Ob Episode Information Episode Created Date Number of Fetuses Patient Bloodtype Patient rh Status Prepregnancy Weight lbs Domestic Partner Domestic Partner Phone Father Name Pest Control Technician Status 06/16/19 22 1 CLOSED Fetus Data First Name Last Name Admitted to NICU Weight (g) Sex Living Outcome Pediatric Complications Fetus ID Race Codes Race Delivery Type 3259.96 5704 M Full Term [id number] Vaginal Delivery Lance Calculation Initial Lance Date Initial Exam Date Initial Exam Provider Initial Ultrasound Date Last Menstrual Period Date Ultra Sound Weeks Gestation 0 Eighteen To Twenty Week Lance Update Ultra Sound Date Fundal Height At Umbil Quickening Date Ultra Sound Latest Weeks Gestation Final Lance Confirmed By Final Lance Confirmed Date Final Lance Date Ultra Sound Latest Days Gestation 0 0 Menstrual History Last Menstrual Date Menses Monthly On Bcp Conception Prior Menses Frequency Hcg Plus Date Menarche Onset Age Delivery Information Delivery Date Delivery Type Labor Anesthesia Weeks Gestation Incision Type Labor Labor Length Hrs Delivered By Post Complications Tubal Sterilization Discharge Date Comments 9 38 +GBS / history drug use Discharge Information Feeding Method Contraceptive Method Maternal HG B and HCT Levels Ob Episode Information Episode Created Date Number of Fetuses Patient Bloodtype Patient rh Status Prepregnancy Weight lbs Domestic Partner Domestic Partner Phone Father Name Pest Control Technician Status 06/16/19 22 1 CLOSED Fetus Data First Name Last Name Admitted to NICU Weight (g) Sex Living Outcome Pediatric Complications Fetus ID Race Codes Race Delivery Type 4195.72 6 M Full Term [id number] Vaginal Delivery Lance Calculation Initial Lance Date Initial Exam Date Initial Exam Provider Initial Ultrasound Date Last Menstrual Period Date Ultra Sound Weeks Gestation 0 Eighteen To Twenty Week Lance Update Ultra Sound Date Fundal Height At Umbil Quickening Date Ultra Sound Latest Weeks Gestation Final Lance Confirmed By Final Lance Confirmed Date Final Lance Date Ultra Sound Latest Days Gestation 0 0 Menstrual History Last Menstrual Date Menses Monthly On Bcp Conception Prior Menses Frequency Hcg Plus Date Menarche Onset Age Delivery Information Delivery Date Delivery Type Labor Anesthesia Weeks Gestation Incision Type Labor Labor Length Hrs Delivered By Post Complications Tubal Sterilization Discharge Date Comments 6 40 Discharge Information Feeding Method Contraceptive Method Maternal HG B and HCT Levels Ob Episode Information Episode Created Date Number of Fetuses Patient Bloodtype Patient rh Status Prepregnancy Weight lbs Domestic Partner Domestic Partner Phone Father Name Pest Control Technician Status 06/16/19 22 1 CLOSED Fetus Data First Name Last Name Admitted to NICU Weight (g) Sex Living Outcome Pediatric Complications Fetus ID Race Codes Race Delivery Type 3401.94 F Full Term [id number] Vaginal Delivery Lance Calculation Initial Lance Date Initial Exam Date Initial Exam Provider Initial Ultrasound Date Last Menstrual Period Date Ultra Sound Weeks Gestation 0 Eighteen To Twenty Week Lance Update Ultra Sound Date Fundal Height At Umbil Quickening Date Ultra Sound Latest Weeks Gestation Final Lance Confirmed By Final Lance Confirmed Date Final Lance Date Ultra Sound Latest Days Gestation 0 0 Menstrual History Last Menstrual Date Menses Monthly On Bcp Conception Prior Menses Frequency Hcg Plus Date Menarche Onset Age Delivery Information Delivery Date Delivery Type Labor Anesthesia Weeks Gestation Incision Type Labor Labor Length Hrs Delivered By Post Complications Tubal Sterilization Discharge Date Comments 5 40 Discharge Information Feeding Method Contraceptive Method Maternal HG B and HCT Levels Ob Episode Information Episode Created Date Number of Fetuses Patient Bloodtype Patient rh Status Prepregnancy Weight lbs Domestic Partner Domestic Partner Phone Father Name Pest Control Technician Status 06/16/19 22 1 DELETED Lance Calculation Initial Lance Date Initial Exam Date Initial Exam Provider Initial Ultrasound Date Last Menstrual Period Date Ultra Sound Weeks Gestation 0 Eighteen To Twenty Week Lance Update Ultra Sound Date Fundal Height At Umbil Quickening Date Ultra Sound Latest Weeks Gestation Final Lance Confirmed By Final Lance Confirmed Date Final Lance Date Ultra Sound Latest Days Gestation 0 0 Menstrual History Last Menstrual Date Menses Monthly On Bcp Conception Prior Menses Frequency Hcg Plus Date Menarche Onset Age Delivery Information Delivery Date Delivery Type Labor Anesthesia Weeks Gestation Incision Type Labor Labor Length Hrs Delivered By Post Complications Tubal Sterilization Discharge Date Comments 0 16 Discharge Information Feeding Method Contraceptive Method Maternal HG B and HCT Levels Ob Episode Information Episode Created Date Number of Fetuses Patient Bloodtype Patient rh Status Prepregnancy Weight lbs Domestic Partner Domestic Partner Phone Father Name Pest Control Technician Status 06/16/19 22 1 CLOSED Fetus Data First Name Last Name Admitted to NICU Weight (g) Sex Living Outcome Pediatric Complications Fetus ID Race Codes Race Delivery Type Ectopic [id number] Lance Calculation Initial Lance Date Initial Exam Date Initial Exam Provider Initial Ultrasound Date Last Menstrual Period Date Ultra Sound Weeks Gestation 0 Eighteen To Twenty Week Lance Update Ultra Sound Date Fundal Height At Umbil Quickening Date Ultra Sound Latest Weeks Gestation Final Lance Confirmed By Final Lance Confirmed Date Final Lance Date Ultra Sound Latest Days Gestation 0 0 Menstrual History Last Menstrual Date Menses Monthly On Bcp Conception Prior Menses Frequency Hcg Plus Date Menarche Onset Age Delivery Information Delivery Date Delivery Type Labor Anesthesia Weeks Gestation Incision Type Labor Labor Length Hrs Delivered By Post Complications Tubal Sterilization Discharge Date Comments 7 ectopic Discharge Information Feeding Method Contraceptive Method Maternal HG B and HCT Levels
[2024-11-26 08:50] VITALS: BP 94/57; PULSE 56; RESP 16; TEMP 36.7; O2SAT 99
[2024-11-26] MEDS: LACTATED RINGERS 1,000 ML 30 ML IV CONT (09:25)
--- NOTE | 2024-11-26 09:28 | WPDANESEPPF ---
Anes - Initial Pre Proc Eval Procedure: Operation Date: 11/26/24 11:00 Proposed Procedures p Hysteroscopy with Shantell Endometrial Ablation - Peterson Jefferson MD Date/Time: 11/26/24 09:28 Surgeon: Peterson Jefferson MD Pre Op Diagnosis: Menorrhagia Patient Data Age: 39 Gender: F Height: 1.8 m Weight: 95 kg Allergies Allergy/AdvReac Type Severity Reaction Status Date / Time Penicillins Allergy Severe HIVES Verified 11/19/24 09:21 ketorolac Allergy Intermediate HIVES Verified 11/19/24 09:21 vancomycin Allergy Mild Itching Verified 11/19/24 09:21 Home Medications ?Medication ?Instructions ?Recorded ?Confirmed ?Type clonazepam 1 mg tablet 1 mg PO DAILY 06/21/22 11/19/24 History sertraline 100 mg tablet 200 mg PO DAILY 06/21/22 11/19/24 History ziprasidone HCl 80 mg capsule 80 mg PO HS 06/21/22 11/19/24 History levothyroxine 175 mcg tablet 175 mcg PO DAILY #7 tabs 05/16/24 11/19/24 Rx bupropion HCl 150 mg 24 hr tablet, 150 mg PO DAILY 11/19/24 11/19/24 History extended release buspirone 10 mg tablet 10 mg PO BID 11/19/24 11/19/24 History methylphenidate HCl 36 mg 36 mg PO DAILY 11/19/24 11/19/24 History tablet,extended release 24 hr ([facility]) trazodone 150 mg tablet 50 mg PO HS PRN insomnia 11/19/24 11/19/24 History ziprasidone HCl 40 mg capsule 40 mg PO DAILY 11/19/24 11/19/24 History Patient hx anesthesia problems: none Family hx anesthesia problems: none Results Review: All pre-operative results and documents have been reviewed as part of the pre-operative evaluation. [facility] Past Medical History Medical History History of blood transfusion History of thyroid cancer Depression Anxiety Surgical History Surgical History delivery delivered H/O thyroidectomy S/P tonsillectomy H/O tubal ligation Family History Family History Father Hypertension Mother CHF (congestive heart failure) COPD (chronic obstructive pulmonary disease) Hypertension Cerebrovascular accident Sibling Epilepsy Asthma Social History Social History Smoking packs per day: 0.5 Smoking cigarettes per day: 10.0 Years smoked: 25 Smoking pack-years: 12.50 Smoking status: Current every day smoker Tobacco type: cigarettes Alcohol intake: current Drinks per week: 0 Alcohol use details: RARE USE Substance use: current Substance use type: marijuana Other substance usage details: DAILY Last use: THC on 12/24/21 Living arrangements: with family Occupation/Education: unemployed Spiritual care concerns: No Anes - Eval Final PreProcedure Day of Procedure 11/26/24 09:28 Patient weight: overweight Heart: regular rate and rhythm Lungs: clear to auscultation Airway: Mallampati scale class II Neurological: alert and oriented Last oral intake: >/= 8 hours ASA classification: III Emergent: no Anesthetic plan: proceed Anesthesia type and monitoring: general GIVS and standard monitoring Results Review: All pre-operative results and documents have been reviewed as part of the pre-operative evaluation. Informed Consent: The patient's anesthetic plan and its attendant risks and benefits were discussed with the patient/family/POA. Questions were solicited and answers provided to the satisfaction of the patient/family/POA.
[2024-11-26] MEDS: ACETAMINOPHEN 500 MG TABLET 1000 MG PO (09:29)
[2024-11-26 09:41] LABS: BEDSIDEPREGUCG Negative (Negative)
--- NOTE | 2024-11-26 09:57 | PM.IMHP ---
H&P: HPI History of Present Illness Date/Time: 11/26/24 09:57 Chief Complaint: Heavy vaginal bleed Narrative: This patient is a 39-year-old female with severe menorrhagia. We have agreed to perform endometrial ablation with hysteroscopy. She understands risks, benefits, and alternatives. She has completed the informed consent process is ready to proceed The patient understands the details of the procedure. The procedure has been explained in detail. She understands the risks. She understands that injuries may occur that result in hospitalization, more surgery, and severe illness. She understands risk of hemorrhage and infection. She denies any chest pain or shortness of breath. She denies any nausea, vomiting, fever, chills. Review of Systems Review of Systems: All systems reviewed & are unremarkable except as noted in HPI and below Constitutional: Constitutional: Denies chills, Denies fatigue, Denies fever(s) and Denies weakness Eyes: Eyes: Denies blurry vision, Denies change in vision, Denies loss of peripheral vision, Denies loss of vision, Denies other visual disturbances and Denies eye pain ENT: Denies vertigo, Denies dizziness, Denies hearing loss, Denies mouth pain, Denies nasal obstruction, Denies neck mass and Denies neck pain Cardiovascular: Cardiovascular: Denies chest pain, Denies diaphoresis, Denies syncope, Denies leg edema and Denies dyspnea Respiratory: Respiratory: Denies chest congestion, Denies cough, Denies hemoptysis, Denies dyspnea and Denies wheezing Gastrointestinal: Gastrointestinal: Denies abdominal pain, Denies constipation, Denies diarrhea, Denies nausea and Denies vomiting Genitourinary: Genitourinary: Denies hematuria, Denies change in libido, Denies nocturia, Denies genital lesions, Denies flank pain and Denies urinary urgency Musculoskeletal: Musculoskeletal: Denies abnormal gait, Denies back pain, Denies myalgias, Denies arthralgias, Denies joint swelling, Denies muscle weakness and Denies neck pain Integumentary/Breasts: Skin/Breast: Denies swelling, Denies breast pain, Denies breast mass, Denies dry skin, Denies nipple discharge, Denies unusual bruising and Denies jaundice Neurologic: Denies Neuro-related abnormal movements, Denies Abnormal speech present, Denies abnormal gait, Denies behavioral changes, Denies confusion, Denies vertigo, Denies dizziness, Denies syncope, Denies loss of vision, Denies memory loss, Denies convulsions and Denies weakness Psychiatric: Psychiatric: Denies abnormal sleep pattern, Denies behavioral changes, Denies change in libido, Denies confusion, Denies depression, Denies anhedonia and Denies memory loss Endocrine: Endocrine: Reports no additional endocrine complaints, Denies change in libido and Denies fatigue Hematologic/Lymphatic: Hematologic/Lymphatic: Reports no additional hematologic/lymphatic complaints Allergic/Immunologic: Allergic/Immunologic: Reports no additional allergic/immunologic complaints and Denies wheezing PMFSH Past Medical History Medical History History of blood transfusion History of thyroid cancer Depression Anxiety Surgical History Surgical History delivery delivered H/O thyroidectomy S/P tonsillectomy H/O tubal ligation Family History Family History Father Hypertension Mother CHF (congestive heart failure) COPD (chronic obstructive pulmonary disease) Hypertension Cerebrovascular accident Sibling Epilepsy Asthma Social History Social History Smoking packs per day: 0.5 Smoking cigarettes per day: 10.0 Years smoked: 25 Smoking pack-years: 12.50 Smoking status: Current every day smoker Tobacco type: cigarettes Alcohol intake: current Drinks per week: 0 Alcohol use details: RARE USE Substance use: current Substance use type: marijuana Other substance usage details: DAILY Last use: THC on 12/24/21 Living arrangements: with family Occupation/Education: unemployed Spiritual care concerns: No Meds Home Medications and Allergies Home Medications ?Medication ?Instructions ?Recorded ?Confirmed ?Type clonazepam 1 mg tablet 1 mg PO DAILY 06/21/22 11/26/24 History sertraline 100 mg tablet 200 mg PO DAILY 06/21/22 11/26/24 History ziprasidone HCl 80 mg capsule 80 mg PO HS 06/21/22 11/26/24 History levothyroxine 175 mcg tablet 175 mcg PO DAILY #7 tabs 05/16/24 11/26/24 Rx bupropion HCl 150 mg 24 hr tablet, 150 mg PO DAILY 11/19/24 11/26/24 History extended release buspirone 10 mg tablet 10 mg PO BID 11/19/24 11/26/24 History methylphenidate HCl 36 mg 36 mg PO DAILY 11/19/24 11/26/24 History tablet,extended release 24 hr ([facility]) trazodone 150 mg tablet 50 mg PO HS PRN insomnia 11/19/24 11/19/24 History ziprasidone HCl 40 mg capsule 40 mg PO DAILY 11/19/24 11/26/24 History Allergies Allergy/AdvReac Type Severity Reaction Status Date / Time Penicillins Allergy Severe HIVES Verified 11/26/24 09:35 ketorolac Allergy Intermediate HIVES Verified 11/26/24 09:35 vancomycin Allergy Mild Itching Verified 11/26/24 09:35 Vital Signs Vital Signs - 24 hr 11/26/24 08:50 Temperature 98.1 F Pulse Rate 56 L Respiratory Rate 16 Blood Pressure 94/57 L Pulse Oximetry 99 Oxygen Delivery Room Air Exam Const: General: cooperative, healthy appearing, comfortable and no acute distress Orientation/consciousness: oriented to person, oriented to place and oriented to time HENMT: Head: normal to inspection Ears: external ears normal Face/Nose/Sinus: Normal external nose present and normal facial exam Face and sinus: normal facial exam Eyes: General: appearance normal, both eyes and all related structures Neck: Neck: normal visual inspection, trachea midline and supple Resp: Auscultation: clear to auscultation bilaterally, no crackles, no rales, no rhonchi and no wheezes Cardio: Rate: regular rate Rhythm: regular rhythm Heart sounds: no click, no murmurs and no rubs GI: GI Palp: No abdominal tenderness, No Soft to palpation, No Tenderness to palpation present (GI) and No Palpable mass present Auscultation: normal bowel sounds Skin: General skin exam: normal color and no rashes or lesions noted Neuro: General: oriented to person, oriented to place and oriented to time Extrem: General: normal to inspection, no joint enlargement, no clubbing, cyanosis or edema, no pedal edema and no calf tenderness Psych: Appearance: grossly normal Mental Status: mental status grossly normal Speech and movement: Normal speech and movement present Assessment and Plan Assessment and plan (1) Menorrhagia: Code(s): N92.0 - Excessive and frequent menstruation with regular cycle Status: Acute Plan This patient is a 47-year-old female with severe menorrhagia. We have agreed to perform endometrial ablation with hysteroscopy. She understands risks, benefits, and alternatives. She has completed the informed consent process is ready to proceed
--- NOTE | 2024-11-26 09:59 | WPDHPUPDATE1 ---
History and Physical Update Update Date/Time: 11/26/24 09:59 History and Physical has been reviewed, including an updated exam of the patient. There are NO changes in the patient's condition. Risks, benefits, and alternatives have been discussed and questions answered. Patient agrees to proceed with procedure.
--- NOTE | 2024-11-26 10:38 | S_PTH ---
PATIENT: Olena Boone LOC: [facility] U#:[id number] AGE/SX: 39/F ROOM: RE11/26/[address]: Peterson Jefferson MD : 1985 BED: DIS: 11/26/2024 SPEC #: [id number] RECD: 11/26/24 12:48 STATUS: DELILAH REQ #: [id number] AMAN: 11/26/24 10:[address]: Peterson Jefferson DEPT: [facility] [place] Surgical RECD BY: Melissa Herrera ENTERED: 11/26/24 12:49 SP TYPE: Surgical OTHR DR: Torri Gonzalez, APPLICATION SUPPORT ENGINEER Tissues: A - Endometrial Curettings Procedures: Hematoxylin and Eosin Stain Gross and Microscopic Level 4
--- NOTE | 2024-11-26 10:46 | W.PM.PROC2 ---
Procedure Note - Detailed Date of Procedure 11/26/24 Pre-op Diagnosis Menorrhagia Post-op Diagnosis Same Procedure Performed endometrial ablation with hysteroscopy d&c Surgeon Peterson Jefferson MD Anesthesia MAC Indications Severe menorrhagia Findings Normal vulva vagina and cervix. Normal endometrium. Description of Procedure The patient was taken to the operating room. She was prepped and draped in the dorsal lithotomy position after induction of mac anesthesia. A speculum was placed in the vagina. Cervix grasped with a tenaculum. The cervix was dilated to about 1 cm. The hysteroscope was inserted. The above findings were noted. Endometrial curettage was performed with a medium-size curette. All surfaces of the endometrium were affected by the curettage. The specimens were collected and sent to pathology. Measurements were taken of the uterus and cervix. The uterine length was then entered into the hand piece of the Shantell device. The device was inserted into the intrauterine cavity. The array of the device was expanded. The balloon cuff was inflated. A good seal was achieved. The energy and safety cycles were initiated and completed. The array was collapsed and the instrument was withdrawn after deflating the balloon cuff. Hysteroscope was reinserted. Above findings were noted. The hysteroscope was removed. The patient tolerated the procedure well. The speculum and tenaculum were removed. She was taken to recovery in stable condition. Sponge lap and needle counts were correct x2. Estimated Blood Loss 15 Pathology Yes Complications No immediate complications Condition Stable Disposition Same day
[2024-11-26 10:50] VITALS: BP 88/44; PULSE 49; RESP 14; O2SAT 96
[2024-11-26 11:20] VITALS: BP 84/38; PULSE 40; O2SAT 97
[2024-11-26] MEDS: oxyCODONE HCL (*CRX) 5 MG TAB IR PO (11:49)
[2024-11-26 11:50] VITALS: BP 98/47; PULSE 44
== END 2024-11-26 12:18 | disposition home or self-care (01) ==
PROVIDERS: PCP Nurse Practitioner Family; Visit Provider Obstetrics & Gynecology
PROC: 0U5B8ZZ Destruction of Endometrium, Via Natural or Artificial Opening Endoscopic (ICD-10-PCS; CPT 58563; principal; 2024-11-26 11:00)
DX: N92.0 Excessive and frequent menstruation with regular cycle (principal); F32.A Depression, unspecified; F41.9 Anxiety disorder, unspecified; F17.210 Nicotine dependence, cigarettes, uncomplicated; F12.90 Cannabis use, unspecified, uncomplicated; Z98.890 Other specified postprocedural states; Z98.51 Tubal ligation status; Z85.850 Personal history of malignant neoplasm of thyroid; Z82.49 Family history of ischemic heart disease and other diseases of the circulatory system
CPT/HCPCS: 58563; 88305; A9270; J2003; J2250; J2704; J3010; J7120